=== PATIENT | male | born 1970 | race Caucasian/White ===

== ENCOUNTER 2018-07-05 15:40 | Outpatient (CLI) | payer OTHER, SELFPAY ==
--- NOTE | 2018-07-05 14:45 | DI.RAD_ITS ---
SYMPTOMS/DIAGNOSIS: LEFT HIP PAIN, H/O LUMBAR DISCECTOMY, Z98.890, ? FX OR OSTEOPHYTE LEFT HIP AND PELVIS: There is mild joint space narrowing of the left hip. Subchondral sclerosis and spurring is seen of the acetabulum. The bones are intact and normally mineralized. The sacroiliac joints are well maintained. The symphysis pubis is intact. The soft tissues are unremarkable. IMPRESSION: Mild degenerative changes of the left hip. LUMBAR SPINE: AP, lateral and bilateral oblique views of the lumbar spine. There are five lumbar-type vertebral bodies. No acute fractures or subluxations are seen. No spondylolysis or spondylolisthesis is present. There do appear to be mild degenerative changes of the facets at L3-4, L4-5 and L5-S1. Small endplate osteophytes are seen at the inferior endplate of L2. IMPRESSION: Mild degenerative changes in the lumbar spine.
== END 2018-07-05 16:00 ==
PROVIDERS: PCP Nurse Practitioner Family; Visit Provider Nurse Practitioner Family
DX: M25.552 Pain in left hip (principal); M16.12 Unilateral primary osteoarthritis, left hip; M47.817 Spondylosis without myelopathy or radiculopathy, lumbosacral region; M25.78 Osteophyte, vertebrae; Z98.890 Other specified postprocedural states
CPT/HCPCS: 72110; 73502

== ENCOUNTER 2018-07-14 00:16 | Outpatient (CLI) | payer SELFPAY ==
[2018-07-14 10:03] LABS: Abs Immature Grans 0.02 k/cumm (0.0-0.09); Absolute Basophil Count 0.03 k/cumm (0.0-0.2); Absolute Eosinophil Count 0.17 k/cumm (0.0-0.7); Absolute Lymphocyte Count 2.36 k/cumm (1.2-3.4); Absolute Monocyte Count 0.79 k/cumm (0.11-0.7); Absolute Neutrophil Count 7.06 k/cumm (1.2-6.7); Basophils % 0.3; Eosinophils % 1.6; HCT 46.4 % (40.0-50.0); HGB 15.5 g/dL (13.5-17.5); Immature Grans % 0.2; Lymphocytes % 22.6; Mean Corp. HGB Concentration 33.4 g/dL (32.0-36.0); Mean Corpuscular Hemoglobin 31.6 pg (27.0-33.0); Mean Corpuscular Volume 94.5 fL (80-95); Monocytes % 7.6; Neutrophils % 67.7; Platelet Count 298 x1000/uL (130-400); RBC 4.91 m/cumm (4.50-6.00); RBC Distribution Width 13.3 % (11.8-14.1); White Blood Cell Count 10.43 k/cumm (4.4-10.8)
[2018-07-14 11:20] LABS: ALT 27 U/L (12-78); AST 12 U/L (15-37); Albumin 3.3 g/dL (3.4-5.0); Alkaline Phosphatase 78 U/L (46-116); Anion Gap 6.5 mmol/L (3-11); BUN 10 mg/dL (7-18); Bilirubin, Total 0.2 mg/dL (0.2-1.0); CO2 31.5 mmol/L (21.0-32.0); CREATININE 0.76 mg/dL (0.70-1.30); Calcium 8.8 mg/dL (8.5-10.1); Chloride 103 mmol/L (98-107); ESR 14 MM/HR (0-15); Glucose 101 mg/dL (70-100); Potassium 4.3 mmol/L (3.5-5.1); Sodium 141 mmol/L (136-145); Total Protein 6.8 g/dL (6.4-8.2); Uric Acid 4.4 mg/dL (3.5-7.2)
== END 2018-07-14 00:36 ==
PROVIDERS: PCP Nurse Practitioner Family; Visit Provider Internal Medicine
DX: M25.552 Pain in left hip (principal); R20.2 Paresthesia of skin; S79.912A Unspecified injury of left hip, initial encounter
CPT/HCPCS: 36415; 80053; 85652; 84550; 85025

== ENCOUNTER 2018-08-01 01:09 | Outpatient (CLI) | payer OTHER, SELFPAY ==
--- NOTE | 2018-08-01 14:35 | DI.MRI_ITS ---
SYMPTOMS/DIAGNOSIS: PARESTHESIAS, LEFT LEG, LOW BACK PAIN SINCE LIFTING/ PULLING INJURY 06/29/18, PAIN WORSE IN LEFT HIP WITH PAIN RADIATING DISTALLY BELOW LEFT KNEE LUMBAR AND LEFT LOWER JOINT MRI: LUMBAR SPINE: The study was carried out according to the usual protocol without and with contrast enhancement. Degenerative changes involving the lower thoracic and lower lumbar spine are demonstrated. The conus medullaris terminates at the level of L1. There is no abnormal enhancement. The soft tissues are unremarkable. At T11-T12, there is a mild posterior disc bulge. At L1-T12, a mild posterior disc bulge is also noted. At L1-L2, the disc is unremarkable. There are mild degenerative changes involving the facet joints. There is no evidence of nerve root impingement or spinal stenosis. At L2-L3, the disc is unremarkable. There are mild degenerative changes involving the facet joints and thickening of the ligamentum flavum. There is no evidence of spinal stenosis or nerve root impingement. At L3-L4, the disc is normal. Bilateral facet joint degenerative changes and prominence of the ligamentum flavum are also noted. At this level, there is mild spinal stenosis. At L4-5, there is a posterior broad-based protrusion of the disc with extrusion along with bilateral facet joint hypertrophy and ligamentum flavum thickening results in moderate spinal stenosis. The left L5 nerve root appears displaced medially by the facet joint hypertrophy and posteriorly by the disc protrusion. At L5-S1, there is a left-sided laminectomy defect. Mild posterior broad-based disc protrusion is identified. There is low signal tissue abutting the left S1 nerve root on the axial images 6 and 7. Differential diagnosis includes peridural fibrosis or recurrent disc protrusion. There is no evidence of stenosis. SUMMARY: Degenerative changes involving the lower thoracic and lumbar spine are identified. There are postoperative changes on the left side at L5-S1. A low signal tissue abutting the left S1 nerve root may be secondary to a peridural fibrosis or recurrent disc protrusion. LEFT LOWER JOINT FOCUSED ON THE HIP: There are mild degenerative arthritic changes within both hip joints, manifested by joint space narrowing, articular cartilage thinning and a small joint effusion. There is increased signal within the right and left acetabular marii, likely degenerative. Note is made of normal signal throughout both hips and visualized portions of the pelvis. No avascular necrosis or fractures identified. The pubic symphysis and visualized portions of the SI joints have a normal appearance. SUMMARY: Mild degenerative changes involving the right and left hip are identified as described above.
--- NOTE | 2018-08-01 16:56 | DI.VRAD_ITS ---
EXAM: MRI Left Lower Extremity Without Intravenous Contrast. Hip EXAM DATE/TIME: 08/01/2018 2:44 PM CLINICAL HISTORY: 48 years old, male; Pain; Hip; Left; Patient HX: Paresthesias, left leg TECHNIQUE: MR of the Left MR lower extremity without intravenous contrast. Exam focused on the hip. COMPARISON: CR XR hip LT complete AP pelvis 07/05/2018 2:24 PM FINDINGS: There are mild degenerative arthritic changes within both hip joints manifested by joint space narrowing, articular cartilage thinning and small joint effusions. There is increased signal within the right and left acetabular labrum, likely degenerative. Bone marrow signal throughout both hips and visualized portions of the pelvis is normal. No avascular necrosis or fracture is identified. The pubic symphysis and visualized portions of the sacroiliac joints have normal appearances. IMPRESSION: Mild degenerative arthrosis of the right and left hip joints. Dictated and Authenticated by: Donnie Macias MD. Ordering:HANSEL MCKNIGHT MD
--- NOTE | 2018-08-01 17:08 | DI.VRAD_ITS ---
EXAM: MR Lumbar Spine Without And With Intravenous Contrast CLINICAL HISTORY: 48 years old, male; Pain; Other: Paresthesias, left leg; Patient HX: Paresthesias left leg TECHNIQUE: Magnetic resonance images of the lumbar spine without and with intravenous contrast in multiple planes. COMPARISON: CR XR lumbar spine complete 07/05/2018 2:24 PM FINDINGS: Vertebrae: Degenerative spondylosis of the lower thoracic and lower lumbar spine. Spinal cord: The conus terminates at the level of the L1 vertebral body. No abnormal enhancement. Soft tissues: Unremarkable. DISCS/SPINAL CANAL/NEURAL FORAMINA: T11-T12: Mild posterior disc bulge. T12-L1: Mild posterior disc bulge. L1-L2: Unremarkable disc. Mild degenerative arthrosis of the facet joints. No nerve root impingement or spinal stenosis. L2-L3: Unremarkable disc. Degenerative facet arthrosis and ligamentum flavum thickening. No nerve root impingement or spinal stenosis. L3-L4: Normal disc. Bilateral facet hypertrophy and ligamentum flavum thickening. Minimal spinal stenosis. L4-L5: Posterior broad-based disc protrusion/extrusion which along with bilateral facet hypertrophy and ligamentum flavum thickening results in moderate spinal stenosis. The left L5 nerve root appears displaced medially by the facet joint hypertrophy and posteriorly by the disc extrusion. L5-S1: Left-sided laminectomy/laminotomy defect. Mild posterior broad-based disc protrusion. Low signal tissue abuts the left S1 nerve root on axial images 6 and 7. Differential diagnosis includes perideural fibrosis and recurrent disc protrusion. No stenosis. IMPRESSION: 1. Degenerative spondylosis of the lower thoracic and lower lumbar spine. 2. Postoperative changes on the left at L5-S1. Low signal tissue abutting the left S1 nerve root may be secondary to peridural fibrosis as well as recurrent disc protrusion. Dictated and Authenticated by: Donnie Macias MD. Ordering:HANSEL MCKNIGHT MD
== END 2018-08-01 01:29 ==
PROVIDERS: PCP Nurse Practitioner Family; Visit Provider Nurse Practitioner Family
DX: R20.2 Paresthesia of skin (principal); M54.5 Low back pain; M25.552 Pain in left hip; M16.0 Bilateral primary osteoarthritis of hip; M51.24 Other intervertebral disc displacement, thoracic region; M47.26 Other spondylosis with radiculopathy, lumbar region; M51.26 Other intervertebral disc displacement, lumbar region; Z98.890 Other specified postprocedural states
CPT/HCPCS: 73721; 72148

== ENCOUNTER 2020-02-12 11:58 | Outpatient (CLI) | payer OTHER, SELFPAY ==
--- NOTE | 2020-02-12 11:30 | DI.RAD_ITS ---
EXAM: XR SHOULDER RT COMPLETE 2+V CLINICAL HISTORY: pain TECHNIQUE: COMPARISON: CR ACROMIO CLAVICULAR JOINTS from 12/27/2010 FINDINGS: Two views were obtained. The cartilaginous joint space of the glenohumeral joint may be minimally na rrowed as seen on the axillary view. Mild marginal osteophyte formation of the glenoid noted. No ot her significant bony or soft tissue abnormalities. IMPRESSION:
== END 2020-02-12 12:18 ==
PROVIDERS: PCP Nurse Practitioner Family; Visit Provider Orthopaedic Surgery
DX: M25.511 Pain in right shoulder (principal); M25.711 Osteophyte, right shoulder
CPT/HCPCS: 73030

== ENCOUNTER 2020-03-13 03:43 | Outpatient (CLI) | payer OTHER, SELFPAY ==
--- NOTE | 2020-03-13 08:30 | DI.MRI_ITS ---
EXAM: MR UPPER JOINT RT WO CLINICAL HISTORY: PAIN R SHOULDER,RT ROTATOR CUFF TENDINITIS,M75.81. TECHNIQUE: Multiplanar multisequence MRI was performed. CONTRAST MATERIAL: Noncontrast. COMPARISON: Plain films dated 12 Feb 2020 FINDINGS: Bones: There is no fracture or contusion pattern. The acromioclavicular joint is normal. There is fluid in the subacromial subdeltoid bursa and a small amount of fluid within the glenohumeral joint. There is a moderate amount of fluid in the sub coracoid bursa. Rotator Cuff: The air is a full-thickness tear of the anterior half of the supraspinatus tendon. There is no muscl e atrophy. The infraspinatus tendon is intact. The subscapularis and teres minor are normal. Labrum and biceps anchor: The biceps tendon is located. The anchor is well maintained. The labrum is within normal limits. IMPRESSION: Full-thickness tear of the anterior half of the supraspinatus tendon.. DATA REPOSITORY:
== END 2020-03-13 04:03 ==
PROVIDERS: PCP Nurse Practitioner Family; Visit Provider Orthopaedic Surgery
DX: M25.511 Pain in right shoulder (principal); M75.81 Other shoulder lesions, right shoulder; M75.101 Unspecified rotator cuff tear or rupture of right shoulder, not specified as traumatic
CPT/HCPCS: 73221

== ENCOUNTER 2020-04-10 08:16 | Outpatient (CLI) | payer OTHER, SELFPAY ==
[2020-04-10 19:40] LABS: COVID-19 RT-PCR UVMMC Result Negative (Negative)
== END 2020-04-10 08:36 ==
PROVIDERS: PCP Nurse Practitioner Family; Visit Provider Orthopaedic Surgery
DX: Z01.818 Encounter for other preprocedural examination (principal); Z11.59 Encounter for screening for other viral diseases
CPT/HCPCS: U0003

== ENCOUNTER 2020-04-13 10:03 | Day surgery (SDC) | payer OTHER, SELFPAY ==
[2020-04-13 10:23] VITALS: BP 117/78; PULSE 72; RESP 16; TEMP 36.9; O2SAT 96
[2020-04-13] MEDS: Lactated Ringers 1,000 ML 80 ML IV ×2 (10:50→12:57)
[2020-04-13] MEDS: ceFAZolin 2 GM/50 ML BAG IVPB (13:00)
--- NOTE | 2020-04-13 14:17 | W.PM.DSUDISC ---
Discharge Plan Disposition Patient Disposition: HOME Condition: Good Discharge Details Reason For Visit: R ROTATOR CUFF REPAIR Attending Provider: Rufino Siddiqi Primary Care Provider: Hafsa Lo Home Meds and New Rx's Prescriptions: New hydrocodone-acetaminophen 5-325 mg tablet 1 tab PO Q4H PRN (Reason: pain) Qty: 20 RF: 0 Continued acetaminophen 500 mg capsule 1,000 mg PO TID PRN (Reason: pain) Qty: 240 RF: 1 ibuprofen 800 mg tablet 800 mg PO TID PRN (Reason: pain) Qty: 240 RF: 1 Discharge Instructions Additional Instructions: Sling for comfort. May keep arm out or sling as much as your discomfort allows. Keep cryocuff on R shoulder continuously overnite tonite. Tomorrow, start to use 4 times/day for 1 hour each time. Keep dressings dry and in place for 72 hours. After 72 hours, may remove dressings, shower, and get incision wet. When out of sling, don't reach away from your body with your R arm. After you remove the dressings in 72 hours, you can leave the incision uncovered if it is dry and sealed. Follow up with in 2 weeks. Take ibuprofen 3 times/day until return in 2 weeks. Take hydrocodone for breakthru pain, if needed. Referrals: Rufino Siddiqi MD [ [facility]YS[facility]IAN] - (f/u in 2 weeks) Equipment/Supplies: Sling Activity:: Activity as Tolerated Remove Dressings/Wound Care:: 72 hours Shower/Bathe:: 72 hours Diet:: As Tolerated Discharge Orders Discharge Orders: Discharge Order (Routine); Ordered 04/13/20 Ordered By: Rufino Siddiqi DS: Diagnosis Discharge Diagnosis (1) Torn rotator cuff: Status: Acute
[2020-04-13 14:37] VITALS: BP 125/86; PULSE 67; RESP 23; TEMP 36.4; O2SAT 95
[2020-04-13 14:42] VITALS: BP 109/67; PULSE 68; RESP 14; TEMP 36.4; O2SAT 97
[2020-04-13 14:47] VITALS: BP 111/83; PULSE 68; RESP 17; TEMP 36.4; O2SAT 95
[2020-04-13 15:01] VITALS: BP 116/81; PULSE 65; RESP 17; TEMP 36.8; O2SAT 96
[2020-04-13 15:43] VITALS: BP 116/81; PULSE 63; RESP 18; TEMP 36.3; O2SAT 96
[2020-04-13] MEDS: oxyCODONE-CR 10 MG TABCR PO (15:43)
--- NOTE | 2020-04-14 14:58 | ROE_ITS ---
Date of service: 04/13/20 Time of Service: 13:00 Operative Note Operative Note DATE OF PROCEDURE: 04/13/20 PRE-OP DIAGNOSIS: Torn rotator cuff right POST-OP DIAGNOSIS: same PROCEDURE: Repair torn rotator cuff on the right [employer] ENGINEER: Rina Esquivel ANESTHESIA: TOMMIE PATHOLOGY: none sent COMPLICATIONS: None Patient was transported to: PACU Patient's condition: stable Indications: Is a 49-year old white male with a greater than 5-month history of persistent right shoulder pain and dysfunction. This was not associated with any known trauma. Patient was initially treated conservatively with a diagnosis of rotator cuff tendinitis, mainly involving the supraspinatus tendon. His pain did not respond to anti-inflammatory medications, structured physical therapy, and subacromial space and steroid injection. Because of the failure of conservative treatment and MRI scan was obtained. The MRI scan showed a full- thickness tear of the anterior 1/3-1/2 of the supraspinatus tendon. There was a mild amount of retraction on MRI scan. There was no muscular atrophy noted. Because of the failure to improve with conservative treatment surgical repair of the rotator cuff was recommended to alleviate his pain. The risk complications of procedure explained patient detail preop. Procedure Description: Patient was taken the operating room on 04/13/2020 where is placed supine operative table. General anesthetic was administered. He was then placed in the pedersen chair position. His right shoulder was then prepped and draped free in usual sterile fashion. Incision was made in the superior aspect of the shoulder beginning at the AC joint and then extending distally about 4 cm distal to the anterolateral corner of the acromion. Incision was ca rried down to the fascia. Simultaneous bleeders were cauterized. The anterior raphae of the deltoid was then incised and then the deltoid muscle was sharply dissected from the anterior acromion perhaps half the distance to the AC joint. Anterior acromioplasty was then performed with oscillating saw a rongeur and then a file. Disease and hypertrophic subacromial bursa was excised. The tear of the supraspinatus tendon was then encountered. On inspection the tear was exactly as had been determined from the MRI scan. The tear began at the bicipital groove extended posteriorly about 2 to 3 cm. It was retracted medially only about a centimeter to a centimeter and a half. It involves just the about the anterior 1/2-1/3 of the supraspinatus. I debrided the retracted end of the tendon down to healthy tendon using a rongeur. I then prepared the footprint on the greater tuberosity with rongeur and a rasp. This provided a bleeding bed of bone for reattachment of the supraspinatus tendon. The biceps tendon was not examined and was found to be undamaged and well located in the bicipital groove. A single 5.0 anchor was then placed in the prepared bed on the greater tuberosity and countersunk. The 2 sutures of #2 FiberWire that were preloaded on the anchor were then passed through the full-thickness of the supraspinatus tendon tear in a horizontal mattress fashion. The 2 sutures were tied returning the torn tendon to its anatomical position. These 2 sutures were then supplemented by interrupted [id number] sutures of #1 Vicryl suture material. The wound was irrigated with saline solution. The wound margins were infiltrated 0.5% Marcaine with epinephrine solution. 2 drill holes were placed to the anterior acromion and then the anterior deltoid was reattached to the acromion with interrupted [id number] sutures of #2 FiberWire through the drill holes in the acromion into full-thickness of deltoid muscle. The lateral deltoid muscle split was approximated with a running interlocked #1 Vicryl suture. Subcu was approximated with a running subcuticular suture of #3 Monocryl supplemented by tissue glue and Steri-Strips. Mepilex dressing was applied. This was then covered with an ABD pad and paper tape. Right arm was placed in a sling. Patient received a scalene block to the right upper extremity preop. His general anesthesia was reversed without complications. Estimated blood loss was less than 10 cc. Patient was discharged to the recovery room in good condition. Patient was later discharged home from day surgery unit when fully recovered. It was felt that he could be sent home as an outpatient due to the limited dissection and fairly small rotator cuff tear. Patient was instructed to wear the sling for comfort. He may leave his right arm out of the sling as often and is much as discomfort allows. He is instructed not to reach away from his body with his right hand at any time. He may shower and get incision wet in 72 hours. He should let the Mepilex dressing come off by itself or wait until he follows up to have it removed. He should follow-up with Dr. Siddiqi in 2 weeks. He is instructed to continue taking ibuprofen 800 mg p.o. 3 times daily until follow-up. He is given prescription for breakthrough pain of hydrocodone with acetaminophen 02/01/2025 1 tablet every 4 hours as needed for breakthrough pain. He is to apply the Cryo/Cuff to his right shoulder continuously overnight tonight. Tomorrow he will start use a Cryo/Cuff 4 times a day for an hour each time.
== END 2020-04-13 16:31 | disposition home or self-care (01) ==
PROVIDERS: PCP Nurse Practitioner Family; Visit Provider Orthopaedic Surgery
PROC: (CPT 23412; principal; 2020-04-13 13:30)
DX: M75.121 Complete rotator cuff tear or rupture of right shoulder, not specified as traumatic (principal); G89.18 Other acute postprocedural pain; F17.210 Nicotine dependence, cigarettes, uncomplicated
CPT/HCPCS: 23412; 76942; C1713; J0690; J1100; J1885; J2001; J2405; L3650

== ENCOUNTER 2020-05-27 10:58 | Outpatient (CLI) | payer OTHER, SELFPAY ==
--- NOTE | 2020-05-27 10:30 | DI.RAD_ITS ---
EXAM: XR SHOULDER RT 1V CLINICAL HISTORY: s/p RTC repair TECHNIQUE: COMPARISON: CR XR SHOULDER RT COMPLETE 2+V from 02/12/2020 FINDINGS: Single AP view was obtained. There is a suture anchor in the greater tuberosity of the humerus. Mod erate degenerative changes of glenohumeral and acromioclavicular joints noted. IMPRESSION: RADIATION DOSE DELIVERED: Total DLP
== END 2020-05-27 11:18 ==
PROVIDERS: PCP Nurse Practitioner Family; Referring Provider Nurse Practitioner Family; Visit Provider Physician Assistant Surgical
DX: M19.011 Primary osteoarthritis, right shoulder (principal); M75.101 Unspecified rotator cuff tear or rupture of right shoulder, not specified as traumatic
CPT/HCPCS: 73020

== ENCOUNTER 2021-04-26 13:09 | Inpatient (IN) | payer BC, SELFPAY ==
--- NOTE | 2021-04-26 | DI.CT_ITS ---
Exam(s) CT FACIAL W EXAM: CT FACIAL W CLINICAL HISTORY: facial and auricular cellulitis with odynophagia. TECHNIQUE: Imaging Protocol: Axial computed tomography images with coronal and sagittal reformatted images were created and reviewed CONTRAST MATERIAL: Intravenous: Omnipaque 350 Contrast volume:100 mL Oral: No COMPARISON: No exams were available for comparison FINDINGS: Facial Bones: No definite fracture is noted in facial bones. Sinuses and Mastoids: Unremarkable. No air-fluid levels. Globes, extraocular muscles, optic nerves and retrobulbar fat: Normal. Upper aerodigestive tract: Normal. Mandible and bilateral temporomandibular joints: Normal. Soft tissues: There is skin thickening and inflammatory stranding in the soft tissues overlying the r ight temporal bone. No focal fluid collection is seen to suggest an abscess. IMPRESSION: Cellulitis involving the soft tissues overlying the right temporal bone. No focal fluid collection t o suggest an abscess. No mastoid effusion. RADIATION DOSE DELIVERED: Total DLP DATA REPOSITORY: All CT scans at this facility are submitted to the National Radiology Data Registry (NRDR) Dose Index Registry (DIR) with the [employer] ([employer]). RADIATION OPTIMIZATION: All CT scans at this facility use at least one of these dose optimization te chniques: automated exposure control; mA and/or kV adjustment per patient size (includes targeted exa ms where dose is matched to clinical indication); or iterative reconstruction.
--- NOTE | 2021-04-26 | DI.RAD_ITS ---
Exam(s) XR CHEST 2V PA LATERAL EXAM: XR CHEST 2V PA LATERAL CLINICAL HISTORY: cough TECHNIQUE: 2D digital imaging was performed. COMPARISON: CR CHEST 2 VIEWS PA,LAT from 06/04/2014 FINDINGS: MEDIASTINUM: Normal. HEART: Normal. PULMONARY VASCULATURE: Normal. LUNGS: Clear. PLEURAL SPACE: No pleural effusion or pneumothorax. BONE:Within normal limits for the patient's age. OTHER FINDINGS:Normal. IMPRESSION: No acute pulmonary findings. DATA REPOSITORY: RADIATION DOSE DELIVERED:
[2021-04-26 13:14] VITALS: BP 130/77; PULSE 94; RESP 16; TEMP 37.4; O2SAT 96
--- NOTE | 2021-04-26 13:44 | W.ED.GENAD ---
Discharge Plan Disposition Condition: Improving Discharge Details Chief Complaint: Cellulitis Admit Date/Time: 04/26/21 16:48 Admit Provider: Rachael Beebe Attending Provider: Rachael Beebe Primary Care Provider: Hafsa Lo ED Provider: Kandace Granados Discharge Instructions Activity:: Activity as Tolerated Equipment/Supplies:: No Equipment Needed Diet:: As Tolerated Discharge Orders Discharge Orders: Discharge Order (Routine); Ordered 04/30/21 Ordered By: Rachael Beebe Discharge Data Discharge Date/Time-TO BE ENTERED AT DEPARTURE: 04/26/21 15:00 Medical Decision Making James Hudson is a 50-year-old man without reported history of major medical problems presenting to emergency department with 2 days of worsening redness and swelling of the right ear, evangelical area of the right face, and right lateral neck just inferior to the ear. On exam patient well nontoxic-appearing. There are no areas of fluctuance or significant edema other than to the auricle itself. Concern for auricle chondritis versus perichondritis. Exam/history is not consistent with deep space abscess, septal or preseptal cellulitis, meningitis, sepsis. Plan for screening labs, IV placement, ED consult. I discussed patient with Dr. Capps of ENT, who recommended IV Zosyn. Plan for admission. Clinical Impression: auricular chondritis Disposition: [facility] inpatient Medical Records Medical records reviewed: Yes I reviewed the patient's medical records. Lab Data Lab results reviewed: Yes I reviewed the patient's lab results. HPI General Mode of arrival: ambulatory. Date/Time Provider Initiated Documentation: 04/26/21 13:11. Limitations to Documentation: no limitations. Information obtained by: patient, RN notes reviewed and old records reviewed. HPI Narrative: James Hudson is a 50-year-old man without reported history of major medical problems presenting to emergency department with chief complaint external ear pain. Patient reports that 2 days ago he was outside when he noticed a sharp stinging sensation at the helical root of his right ear. Patient reports that since that time he has noticed spreading swelling and redness. He reports that swelling and redness now over his entire right ear, spreading into the temporal region of his right face, and also below his ear into his right lateral neck. Patient reports that he area of swelling and redness is very painful. He denies any inner ear pain or hearing changes, fever, cough, shortness of breath, any other pain, vomiting, diarrhea, numbness, weakness, pain with moving his eye, vision changes, difficulty swallowing. Patient reports he has continued to eat and drink as usual. He denies any history of similar symptoms in the past. Related Data Home Medications Medication Instructions Recorded Confirmed ibuprofen 600 mg PO TID #15 tab 04/30/21 05/06/21 nicotine [Nicotrol] 1 inh INHALATION Q2H PRN PRN #168 04/30/21 05/06/21 ea Previous Rx's Medication Instructions Recorded ibuprofen 600 mg PO TID #15 tab 04/30/21 nicotine [Nicotrol] 1 inh INHALATION Q2H PRN PRN #168 04/30/21 ea Allergies Allergy/AdvReac Type Severity Reaction Status Date / Time No Known Allergies Allergy Verified 05/06/21 08:54 General Stated Complaint: Cellulitis GILBERTO: 4 Review of Systems Narrative: Constitutional: denies fevers Eyes: denies eye pain, pain with moving his eye, vision changes ENT: denies inner ear pain, hearing changes, dental pain, sore throat, reports external ear pain, pain in his right evangelical area and right lateral neck and area of rash Cardiovascular: denies chest pain, edema Respiratory: denies SOB, cough GI: denies abdominal pain, vomiting, diarrhea : denies flank pain MSK: denies back pain, neck pain, arthralgias, myalgias Skin: Reports rash as per HPI, denies any other skin changes Neuro: denies headaches, numbness, weakness PFSH Medical History ADD (attention deficit disorder) Asthma Sciatica of left side Smoker Surgical History H/O cervical discectomy H/O right inguinal hernia repair S/P lumbar discectomy Family History Mother Diabetes Hypertension Father Hypertension Heart disease Sister Hypertension Social History Smoking/Tobacco Use Status: Current every day Tobacco Type: cigarettes Smoking packs per day: 1.5 Smoking cigarettes per day: 30.0 Years smoked: 30 Smoking pack-years: 45.00 Smoking risk assessment performed?: Yes Alcohol Intake: current Alcohol Intake frequency: a few times a month Alcohol type: beer and other Details: 6 pack on weekends Drug use: Never Substance use type: does not use Details: alcohol: t-2. 2 beers Household members: none Number of Children: 2 current occupation: [employer], [place] [employer] x 2 1/2 years Current gender identity: male What type of physical activity do you participate in: other Details: with employment Do you feel safe at home: Yes Do you feel safe in your relationship?: Yes Exam Narrative Exam Narrative: Constitutional: well and [id number], pleasant, conversing normally HENT: head atraumatic/normocephalic, mucous membranes moist, no edema/lesion/erythema of the oropharynx, normal voice, no drooling or pooling of secretions, right auricle edematous and erythematous, erythema at the helical root and into the right lateral temporal area with minimal edema, no periorbital edema/erythema, erythema at the inferior aspect of the right ear into the superior aspect of the right lateral neck without edema/fluctuance. Right canal is normal without edema or discharge, right TM is normal. Eyes: conjunctiva normal, sclera normal, pupils 3mm b/l, ERRLA, extraocular movements intact and painless Neck: no stridor, full painless ROM, trachea midline Chest: normal inspection Resp: normal work of breathing, speaking in full sentences Cardio: normal rate, normal rhythm Skin: warm, dry, normal color, no rash Neuro: alert, not altered, grossly non-focal, normal tone Ext: Moving all extremities equally Psych: normal mood, normal affect, normal behavior Course Vital Signs Vital signs: Vital Signs Temperature 37.4 C 04/26/21 13:14 Pulse 94 H 04/26/21 13:14 Respiratory Rate 16 04/26/21 13:14 Blood Pressure 130/77 04/26/21 13:14 Pulse Oximetry 96 04/26/21 13:14 Temperature 37.4 C 04/26/21 13:14 Temperature Source Skin 04/26/21 13:14 Pulse 94 H 04/26/21 13:14 Respiratory Rate 16 04/26/21 13:14 Respiratory Effort 04/26/21 13:20 Blood Pressure 130/77 04/26/21 13:14 Pulse Oximetry 96 04/26/21 13:14 Oxygen Delivery Method Room Air 04/26/21 13:14 Oxygen Flow Rate 0 04/26/21 13:14 Pain Level 5 04/26/21 13:14
[2021-04-26 14:28] LABS: Abs Immature Grans 0.02 10^3/uL (0.0-0.06); Absolute Basophil Count 0.03 10^3/uL (0.0-0.2); Absolute Eosinophil Count 0.03 10^3/uL (0.0-0.7); Absolute Lymphocyte Count 1.35 10^3/uL (1.2-3.4); Absolute Monocyte Count 1.31 10^3/uL (0.1-0.8); Absolute Neutrophil Count 5.88 10^3/uL (1.2-6.7); Basophils % 0.3; Eosinophils % 0.3; HCT 48.5 % (40.0-50.0); HGB 16.4 g/dL (13.5-17.5); Immature Grans % 0.2; Lymphocytes % 15.7; MCH 31.1 pg (27.0-33.0); MCHC 33.8 % (32.0-36.0); MCV 91.9 fL (80-95); MPV 9.6 fL (8.0-11.0); Monocytes % 15.2; Neutrophils % 68.3; Nucleated RBC 0 %; Platelet Count 307 10^3/uL (130-400); RBC 5.28 10^6/uL (4.36-5.78); RDW 13.1 % (11.8-14.1); RDW-SD 44.6 fL; WBC 8.62 10^3/uL (4.4-10.8)
[2021-04-26 14:50] LABS: ALT 24 U/L (16-63); AST 12 U/L (15-37); Albumin 3.6 g/dL (3.4-5.0); Alkaline Phosphatase 75 U/L (46-116); Anion Gap 9.1 mmol/L (3-11); BUN 10 mg/dL (7-18); Bilirubin, Total 0.3 mg/dL (0.2-1.0); C-Reactive Protein 5.18 mg/dL (0.0-0.3); CO2 28.9 mmol/L (21.0-32.0); CREATININE 0.7 mg/dL (0.70-1.30); Calcium 9.2 mg/dL (8.5-10.1); Chloride 103 mmol/L (98-107); Glucose 107 mg/dL (74-106); Potassium 3.8 mmol/L (3.5-5.1); Sodium 141 mmol/L (136-145)
[2021-04-26] MEDS: PIPERACILLIN/TAZO 3.375 GM in Normal Saline 50 ML IVPB (14:58)
[2021-04-26] MEDS: Normal Saline Flush 10 ML SYR IVP (14:59)
--- NOTE | 2021-04-26 15:05 | NUR.NOTE ---
second set of blood cultures drawn from the left AC at 1445
[2021-04-26 15:10] VITALS: BP 125/80; PULSE 84; RESP 16; O2SAT 97
[2021-04-26 15:14] LABS: Procalcitonin < 0.1 ng/mL
[2021-04-26 15:15] LABS: Source Nasal/Nares
[2021-04-26 15:16] VITALS: BP 119/78; PULSE 87; RESP 14; TEMP 37.5; O2SAT 99
--- NOTE | 2021-04-26 15:24 | W.PM.HP.N ---
Date of service: 04/26/21 Time of Service: 15:45 Assessment and Plan Assessment and plan (1) Cellulitis of auricle of right ear: Status: Acute Assessment and plan: Admit for IV antibiotics. ENT recommended anti pseudomonal coverage in addition to skin floar, so zosyn was initiated in the ED and will be continued. Await results of CT face/soft tissues neck. (2) Odynophagia: Status: Acute Assessment and plan: Await above imaging. No difficulty with swallowing per patient. May have to downgrade diet. (3) Upper respiratory infection: Status: Acute Assessment and plan: PMHx does list asthma, though patient does not list this in his PMHx in his interview with me. He is not wheezing. Await CXR. Provide antitussives. I do not see a role for steroids right now. He is already on abx for above. (4) Tobacco abuse: Status: Acute Assessment and plan: Advised to quit. Provide nicotine replacement. (5) DVT prophylaxis: Status: Acute Assessment and plan: lovenox (6) Discharge planning issues: Status: Acute Assessment and plan: Full code History of Present Illness History of Present Illness Chief Complaint: R facial, ear, and neck swelling Narrative: Mr Swan is a 50 year old male who denies having any past medical history other than tobacco abuse who presented to [facility] ED today c/o progressively worsening right ear, facial and neck swelling, redness and pain since he was stung by an unknown insect on Monday. The incident happened while mowing on Monday, when the patient thought that either black or horse flies were swarming around him. He felt something sting him in his right ear. He does not have a history of allergic reactions to insect bites and he is really not sure what the insect was - he did not see it. While initially the right ear just felt sore, the following morning the right side of the face was also sore and he noticed that it was hurting to swallow on the right side, though it was not difficult to swallow. This morning, he found the symptoms to be even worse, including swelling of the superior aspect of anterior neck. It needs to be noted that the patient has a history of C-spine decompression/discectomy and has hardware in place. In the ED, he was afebrile and did not have leucocytosis. However, his presentation was impressive. ENT consult was sought over the phone, and recommendation was made to initiate the patient on zosyn. Hospitalist admission was requested. The patient is reporting 4-5 days of respiratory symptoms including sneezing and productive cough with ramsey sputum, but not fever. His roommate and a family member have the same symptoms. Both he and his roommate are fully vaccinated against covid-19. The patient states he got an mRNA vaccine, but does not remember which type. He has a card. He does smoke and was advised to quit. He was taking Tussin to help manage his symptoms. Review of Systems Narrative: Reports slight pressure behind right eye, but no pain on eye movement. All systems reviewed & are unremarkable except as noted in HPI and below PFSH Medical History ADD (attention deficit disorder) Asthma Sciatica of left side Smoker Surgical History H/O cervical discectomy H/O right inguinal hernia repair S/P lumbar discectomy Family History Mother Diabetes Hypertension Father Hypertension Heart disease Sister Hypertension Social History Smoking/Tobacco Use Status: Current every day Tobacco Type: cigarettes Smoking packs per day: 1.5 Smoking cigarettes per day: 30.0 Years smoked: 30 Smoking pack-years: 45.00 Smoking risk assessment performed?: Yes Alcohol Intake: current Alcohol Intake frequency: a few times a month Alcohol type: beer and other Details: 6 pack on weekends Drug use: Never Substance use type: does not use Details: alcohol: t-2. 2 beers Household members: none Number of Children: 2 current occupation: [employer], [place] [employer] x 2 1/2 years Current gender identity: male What type of physical activity do you participate in: other Details: with employment Do you feel safe at home: Yes Do you feel safe in your relationship?: Yes Meds Allergies and Home Medications Allergies Allergy/AdvReac Type Severity Reaction Status Date / Time No Known Allergies Allergy Verified 04/26/21 13:19 Home Medications Medication Instructions Recorded Confirmed Type Unknown [No Known Home Meds] 04/26/21 04/26/21 History Exam Narrative Exam Narrative: General: Pleasant middle-aged male, A&Ox3, sitting comfortably in a chair, visibly erythema/swelling R face, ear Neurological: A&Ox3, no focal deficits Psychiatric: Appropriate speech pattern/content Skin: R ear erythematous but ear canal does not appear involved. Facial erythema and swelling superior R side of the face sparing the eye HEENT: Atraumatic, normocephalic, EOMI, MMM, see skin exam above, clear oropharynx, + submandibular swelling on R though no obviously palpable abscess (?lymphadenopathy), no JVD Cardiovascular: RRR, no m/r/g Lungs: CTAB Gastrointestinal: soft, nontender, nondistended Genitourinary: deferred Extremities: no edema BLE's Results Imaging Additional studies: CT facial bones, soft tissues neck, and CXR are pending. Labs Result diagrams: 04/26/21 14:16 04/26/21 14:16 Labs: Laboratory Results - last 24 hr 04/26/21 04/26/21 04/26/21 14:16 14:16 14:16 WBC 8.62 RBC 5.28 Hgb 16.4 Hct 48.5 MCV 91.9 MCH 31.1 MCHC 33.8 RDW 13.1 Plt Count 307 MPV 9.6 Immature Gran % 0.2 Neutrophils % 68.3 Lymphocytes % 15.7 Monocytes % 15.2 Eosinophils % 0.3 Basophils % 0.3 Nucleated RBC % 0 Absolute Neutrophils 5.88 Absolute Lymphocytes 1.35 Absolute Monocytes 1.31 H Absolute Eosinophils 0.03 Absolute Basophils 0.03 Sodium 141 Potassium 3.8 Chloride 103 Carbon Dioxide 28.9 Anion Gap 9.1 BUN 10 Creatinine 0.7 Estimated GFR/1.73 m2 >= 60.00 Glucose 107 H Calcium 9.2 Total Bilirubin 0.3 AST 12 L ALT 24 Alkaline Phosphatase 75 C-Reactive Protein 5.18 H Total Protein 8.0 Albumin 3.6 Procalcitonin < 0.1 COVID-19 Source 04/26/21 15:00 WBC RBC Hgb Hct MCV MCH MCHC RDW Plt Count MPV Immature Gran % Neutrophils % Lymphocytes % Monocytes % Eosinophils % Basophils % Nucleated RBC % Absolute Neutrophils Absolute Lymphocytes Absolute Monocytes Absolute Eosinophils Absolute Basophils Sodium Potassium Chloride Carbon Dioxide Anion Gap BUN Creatinine Estimated GFR/1.73 m2 Glucose Calcium Total Bilirubin AST ALT Alkaline Phosphatase C-Reactive Protein Total Protein Albumin Procalcitonin COVID-19 Source Nasal/Nares Last Vital Signs Temp 37.5 C 04/26/21 15:16 Pulse 87 04/26/21 15:16 Resp 14 04/26/21 15:16 BP 119/78 04/26/21 15:16 Pulse Ox 99 04/26/21 15:16
[2021-04-26 15:25] VITALS: BP 119/78; PULSE 87; RESP 14; TEMP 37.5; O2SAT 99
[2021-04-26 16:08] LABS: COVID-19 PCR Negative (Negative)
[2021-04-26] MEDS: Normal Saline - Diluent 50 ML VIAL IV (16:39)
[2021-04-26] MEDS: Omnipaque 350 MG/ML 100 ML BTL IJ (16:40)
--- NOTE | 2021-04-26 16:45 | DI.CT_ITS ---
Exam(s) CT NECK W EXAM: CT NECK W CLINICAL HISTORY: facial/auricular cellulitis with odynophagia/swell. TECHNIQUE: Imaging Protocol: Axial computed tomography images with coronal and sagittal reformatted images were created and reviewed CONTRAST MATERIAL: Intravenous: Omnipaque 350 Contrast volume:100 mL Oral: No COMPARISON: No exams were available for comparison FINDINGS: Visualized paranasal sinuses: Within normal limits. Nasopharynx: Within normal limits. Oropharynx: Within normal limits. Hypopharynx: Within normal limits. Larynx: Within normal limits. Retropharyngeal space: Within normal limits. Parotids/submandibular: Mild asymmetric enhancement of the right parotid gland. The left parotid gl and and submandibular glands are unremarkable. No calcification is present. Thyroid gland: Within normal limits. Lymphadenopathy: Mildly enlarged lymph nodes are seen in the right neck. There is a 2.2 cm long rig ht upper cervical lymph node. These are likely reactive. Trachea: Within normal limits. Lung apices: Mild centrilobular emphysematous changes. Bones: Within normal limits. Anterior cervical disc fusion from C4 through C7. Carotids/Jugular: Within normal limits. Soft tissues: Skin thickening and inflammatory stranding in the right periauricular region and super ficial to the right temporal bone. No focal fluid collection is seen to suggest an abscess. IMPRESSION: Findings suggestive of acute sialadenitis of the right parotid gland. No stone is identified. Cellu litis in the soft tissues around the right ear and parotid gland. No focal fluid collection to sugge st an abscess. RADIATION DOSE DELIVERED: Total DLP DATA REPOSITORY: All CT scans at this facility are submitted to the National Radiology Data Registry (NRDR) Dose Index Registry (DIR) with the [employer] (ACR). RADIATION OPTIMIZATION: All CT scans at this facility use at least one of these dose optimization te chniques: automated exposure control; mA and/or kV adjustment per patient size (includes targeted exa ms where dose is matched to clinical indication); or iterative reconstruction.
--- NOTE | 2021-04-26 16:50 | DI.VRAD_ITS ---
PROCEDURE INFORMATION: Exam: XR Chest Exam date and time: 04/26/2021 3:59 PM Age: 50 years old Clinical indication: Cough TECHNIQUE: Imaging protocol: XR of the chest. Views: 2 views. Total images: 2 COMPARISON: CR CHEST 2 VIEWS PA,LAT 06/04/2014 9:33 PM FINDINGS: Lungs: Unremarkable. No consolidation. Pleural spaces: Unremarkable. No pleural effusion. No pneumothorax. Heart/Mediastinum: Unremarkable. No cardiomegaly. Bones/joints: Unremarkable. IMPRESSION: No acute findings. Dictated and Authenticated by: Phu Larios MD. Ordering:ABDOULAYE Cano MD
[2021-04-26] MEDS: Enoxaparin 40 MG/0.4 ML SYR SC (16:53)
--- NOTE | 2021-04-26 16:54 | DI.VRAD_ITS ---
PROCEDURE INFORMATION: Exam: CT Maxillofacial With Contrast Exam date and time: 04/26/2021 4:15 PM Age: 50 years old Clinical indication: Other: Facial and auricular cellulitis with odynophagia TECHNIQUE: Imaging protocol: Computed tomography images of the face with intravenous contrast. Total images: 666 Contrast material: OMNIPAQUE 350; Contrast volume: 99 ml; Contrast route: INTRAVENOUS (IV); COMPARISON: MR C-SPINE^ROUTINE 07/01/2014 12:51 PM FINDINGS: Orbital cavity: Orbits are normal. Globes are unremarkable. Bones/joints: No acute fracture. Paranasal sinuses: Normal. No air-fluid levels. Mastoid air cells: No mastoid effusion. Soft tissues: There is right temporal skin thickening/subcutaneous inflammatory fat stranding. No discrete fluid collection. IMPRESSION: Right temporal skin thickening and subcutaneous inflammatory fat stranding, likely cellulitis. No discrete fluid collection. No mastoid effusion. Dictated and Authenticated by: Phu Larios MD. Ordering:ABDOULAYE Cano MD
--- NOTE | 2021-04-26 17:05 | DI.VRAD_ITS ---
PROCEDURE INFORMATION: Exam: CT Neck With Contrast Exam date and time: 04/26/2021 3:59 PM Age: 50 years old Clinical indication: Other: Facial and auricular cellulitis with odynophagia/swelling; Prior surgery; Surgery date: 6+ months TECHNIQUE: Imaging protocol: Computed tomography images of the neck with contrast. Total images: 639 Contrast material: OMNIPAQUE 350; Contrast volume: 100 ml; Contrast route: INTRAVENOUS (IV); COMPARISON: MR C-SPINE^ROUTINE 07/01/2014 12:51 PM FINDINGS: Nasopharynx: Unremarkable. Oropharynx: Unremarkable. No significant tonsillar enlargement. Hypopharynx: Unremarkable. Larynx: Unremarkable. Normal epiglottis. Retropharyngeal space: Unremarkable. Submandibular/Parotid glands: There is slight asymmetric hyper enhancement of the right parotid gland. The submandibular glands are unremarkable. Thyroid: Normal. No enlarged or calcified nodules. Lymph nodes: There is a 2.2 cm long axis right upper cervical node (series 11, image 39). Trachea: Visualized trachea is unremarkable. Lungs: Unremarkable as visualized. Bones/joints: C4-C7 ACDF hardware noted. Soft tissues: There is skin thickening and subcutaneous inflammatory fat stranding in the right preauricular region. No discrete fluid collection. IMPRESSION: 1. Asymmetric hyperenhancement the right parotid gland suggestive of acute sialadenitis. No sialolith. 2. Right cervical adenopathy, likely reactive. Dictated and Authenticated by: Phu Larios MD. Ordering:ABDOULAYE Cano MD
[2021-04-26 17:45] LABS: *AMPHETAMINES SCREEN URINE Negative (Negative); *BARBITURATES SCREEN URINE Negative (Negative); *BENZODIAZEPINES SCREEN URINE Negative (Negative); Cannabinoids THC Positive (Negative); Cocaine Screen,Urine Negative (Negative); METHADONE URINE SCREEN Negative (Negative); OPIATES URINE SCREEN Negative (Negative)
[2021-04-26] MEDS: Normal Saline 1,000 ML 150 ML IV (17:45)
[2021-04-26 17:46] LABS: Tricyclic Antidepressants Negative (Negative)
[2021-04-26] MEDS: Acetaminophen 325 MG TAB 650 MG PO (19:52)
[2021-04-26] MEDS: guaiFENesin 600 MG TABCR PO (19:52)
[2021-04-26] MEDS: Benzonatate 100 MG CAP PO (19:52)
[2021-04-26 23:55] VITALS: BP 116/79; PULSE 78; RESP 16; TEMP 36.5; O2SAT 94
[2021-04-27] MEDS: Normal Saline 1,000 ML 150 ML IV ×2 (01:15→08:00)
[2021-04-27 06:40] LABS: Abs Immature Grans 0.01 10^3/uL (0.0-0.06); Absolute Basophil Count 0.03 10^3/uL (0.0-0.2); Absolute Eosinophil Count 0.04 10^3/uL (0.0-0.7); Absolute Lymphocyte Count 1.79 10^3/uL (1.2-3.4); Absolute Monocyte Count 1.19 10^3/uL (0.1-0.8); Absolute Neutrophil Count 3.69 10^3/uL (1.2-6.7); Basophils % 0.4; Eosinophils % 0.6; HCT 43.4 % (40.0-50.0); HGB 14.2 g/dL (13.5-17.5); Immature Grans % 0.1; Lymphocytes % 26.5; MCH 30.9 pg (27.0-33.0); MCHC 32.7 % (32.0-36.0); MCV 94.3 fL (80-95); MPV 9.5 fL (8.0-11.0); Monocytes % 17.6; Neutrophils % 54.8; Nucleated RBC 0 %; Platelet Count 261 10^3/uL (130-400); RDW 13.2 % (11.8-14.1); RDW-SD 45.7 fL; WBC 6.75 10^3/uL (4.4-10.8)
[2021-04-27 06:50] LABS: Anion Gap 8.3 mmol/L (3-11); BUN 8 mg/dL (7-18); C-Reactive Protein 4.63 mg/dL (0.0-0.3); CO2 27.7 mmol/L (21.0-32.0); CREATININE 0.8 mg/dL (0.70-1.30); Calcium 7.9 mg/dL (8.5-10.1); Chloride 106 mmol/L (98-107); Glucose 98 mg/dL (74-106); Potassium 3.7 mmol/L (3.5-5.1); Sodium 142 mmol/L (136-145)
[2021-04-27 06:54] LABS: Hemoglobin A1C 5.9 % (<5.7)
[2021-04-27 07:30] VITALS: BP 128/75; PULSE 76; RESP 16; TEMP 37; O2SAT 95
[2021-04-27] MEDS: guaiFENesin 600 MG TABCR PO ×2 (08:00→19:39)
[2021-04-27] MEDS: Benzonatate 100 MG CAP PO ×3 (08:00→19:39)
--- NOTE | 2021-04-27 09:50 | INITIAL_ITS ---
- If Service Date Differs Date of service: 04/27/21 Time of Service: 09:50 Care Management Initial Assess REASON FOR HOSPITALIZATION:: Acute Infectious auricular chondritis PAST MEDICAL HISTORY/PAST SURGICAL HISTORY:: Medical History. ADD (attention deficit disorder). Asthma. Sciatica of left side. Smoker. Surgical History. H/O cervical discectomy. H/O right inguinal hernia repair. S/P lumbar discectomy PREVIOUS FUNCTIONAL STATUS/SOCIAL/FAMILY SUPPORTS:: James lives in [place] with a roommate. He reports that this works well, as his roommate works the day shift, and he works the evening shift. His parents live near by, as well as his two children, who are 20 & 24. 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 He is independent at baseline. CURRENT FUNCTIONAL STATUS:: James was sitting in a chair holding an ice pack to his face/ear when CM met with him. He reported that he feels that the redness is getting worse, and not currently improving. Per report, he is on IV Zosyn, and will likely remain for a few days. CM will continue to follow. ADVANCE DIRECTIVES:: None on file, CM will offer forms. Has patient been provided with info about the portal/API?: Yes Did the patient sign up for the portal?: No CODE STATUS:: Full Code INSURANCE COVERAGE / FINANCIAL ISSUES:: [employer] CURRENT HOME/COMMUNITY SERVICES/EQUIPMENT:: No current services or equipment. PRIMARY CARE PHYSICIAN:: Hafsa Lo POTENTIAL DISCHARGE NEEDS:: Follow up appointments. PATIENT/FAMILY EDUCATION NEEDS:: Review discharge instructions regarding activity levels and medications, discussion of self care needs including ask me three. ANTICIPATED BARRIERS TO DISCHARGE:: None identified. TRANSPORTATION:: Via private vehicle by friend. PLAN:: James is currently being treated with IV antibiotics. He will return home once he is medically cleared. He will be driven home via pirvate vehicle by a friend. He will follow up with his PCP and discharge plan of care. CM will continue to follow.
--- NOTE | 2021-04-27 10:25 | PHA.REVIEW ---
Pharmacy Admission Review - Admission Clinical Review (Last Reviewed 04/26/21 @ 16:41 by Rachael Beebe MD) Discharge planning issues (Acute) DVT prophylaxis (Acute) Odynophagia (Acute) Upper respiratory infection (Acute) Tobacco abuse (Acute) Cellulitis of auricle of right ear (Acute) No Known Allergies Allergy (Verified 04/26/21 13:19) Resuscitation Status Full Code Height 6 ft Weight 90.718 kg - Renal Dosing Renal Dosing: BUN 8 mg/dL (7-18) 04/27/21 06:20 Creatinine 0.8 mg/dL (0.70-1.30) 04/27/21 06:20 Medications needing adjustments: Reviewed (Crcl ~122 mL/min current meds okay) - Anticoagulation Anticoagulation: Hgb 14.2 g/dL (13.5-17.5) D 04/27/21 06:20 Hct 43.4 % (40.0-50.0) 04/27/21 06:20 Plt Count 261 10^3/uL (130-400) 04/27/21 06:20 Creatinine 0.8 mg/dL (0.70-1.30) 04/27/21 06:20 DVT Prophylaxis: Reviewed Medications: Enoxaparin Therapeutic Anticoagulation: N/A - Opiate Usage Evaluate Pain Scale/Pains Meds: N/A - Relevant Labs Sodium 142 mmol/L (136-145) 04/27/21 06:20 Potassium 3.7 mmol/L (3.5-5.1) 04/27/21 06:20 Chloride 106 mmol/L (98-107) 04/27/21 06:20 Magnesium 2.0 mg/dL (1.8-2.4) 04/27/21 06:20 C-Reactive Protein 4.63 mg/dL (0.0-0.3) H 04/27/21 06:20 Electrolytes, C-Reactive P, ESR: Reviewed - DM Control DM Control: Glucose 98 mg/dL (74-106) 04/27/21 06:20 Hemoglobin A1c 5.9 % (<5.7) H 04/27/21 06:20 Insulin Dosing: N/A (A1c slightly elevated, BG this morning within normal limits) - Heart Failure/CA EF%, ODALIS's, B-Blockers, Diuretics: N/A - BP Control BP Control: Blood Pressure 128/75 Blood Pressure 116/79 If elevated: N/A - Qtc Review If Elevated: N/A - IV to PO Switch IV Medications: Reviewed - Home Meds Home Med List reviewed: Reviewed (no known home meds) - Current meds Current Medication Order Review: Intervened (discontinued duplicate meds orders and DI meds that had already been given) - Comments Comments/Follow Ups: Watch VS, labs, for culture results and for med changes. Antibiotic Activity - Pharmacy Antibiotic Review Pharmacy Antibiotic Activity: Reviewed, no change (Zosyn continues (day 2 starts this afternoon). Sputum culture growing normal selene, blood cultures pending.)
--- NOTE | 2021-04-27 10:44 | NUR.NOTE ---
this CONSULTING DATABASE ADMINISTRATOR went into pts room to offer him AM care along with oral care. The PT refused. I was informed that the PT moves around the room independently so I brought him the things to wash up when he is ready. I did put clean linens on bed and offered anything else he may need and has no requests at this time. Nursing Note:
[2021-04-27] MEDS: predniSONE 20 MG TAB 60 MG PO (12:26)
--- NOTE | 2021-04-27 13:38 | PGE_ITS ---
Date of Service Date of service: 04/27/21 Time of Service: 13:38 Assessment and Plan Assessment and plan (1) Infected insect bite of head and neck: Status: Acute Assessment and plan: [place] [facility] [place] Continue zosyn for now. Add steroids and NSAIDS. (2) Cellulitis of auricle of right ear: Status: Acute Assessment and plan: As above (3) Sialadenitis: Status: Acute Assessment and plan: [place] [facility] [place]: Add cyalogogues. Heat when the patient is more comfortable. Recommended aggressive hydration. Steroids. (4) Acute bronchitis: Status: Acute Assessment and plan: No evidence of pneumonia. Likely viral. Covid-19 ruled out. No need for bronchodilators. Continue antitussives. (5) Tobacco abuse: Status: Chronic Assessment and plan: Advised to quit. Provide nicotine replacement. (6) DVT prophylaxis: Status: Acute Assessment and plan: lovenox (7) Discharge planning issues: Status: Acute Assessment and plan: Full code Subjective Subjective Interval history since last seen: Mr Swan feels that his right face redness and swelling are more extensive today. It hurts more to swallow as well, but he has no problem actually swallowing. Heat has not helped. Denies dizziness, chest pain, shortness of breath, nausea. No fever overnight. Exam Narrative Exam Narrative: General: Pleasant middle-aged male, A&Ox3, more extensive right facial erythema today, appears more purple as well HEENT EOMI, MMM, + submandibular swelling on R, appears worse; right ear appears slightly less erythematous and swollen; I also see wrinkles. R anterior superior neck is about as erythematous as yesterday. Cardiovascular: RRR, no m/r/g Lungs: CTAB Gastrointestinal: soft, nontender, nondistended Extremities: no edema BLE's Objective Last Vital Signs Temp 37.0 C 04/27/21 07:30 Pulse 76 04/27/21 07:30 Resp 16 04/27/21 07:30 BP 128/75 04/27/21 07:30 Pulse Ox 95 04/27/21 07:30 Laboratory Results - last 24 hr 04/26/21 04/26/21 04/26/21 14:16 14:16 14:16 WBC 8.62 RBC 5.28 Hgb 16.4 Hct 48.5 MCV 91.9 MCH 31.1 MCHC 33.8 RDW 13.1 Plt Count 307 MPV 9.6 Immature Gran % 0.2 Neutrophils % 68.3 Lymphocytes % 15.7 Monocytes % 15.2 Eosinophils % 0.3 Basophils % 0.3 Nucleated RBC % 0 Absolute Neutrophils 5.88 Absolute Lymphocytes 1.35 Absolute Monocytes 1.31 H Absolute Eosinophils 0.03 Absolute Basophils 0.03 Sodium 141 Potassium 3.8 Chloride 103 Carbon Dioxide 28.9 Anion Gap 9.1 BUN 10 Creatinine 0.7 Estimated GFR/1.73 m2 >= 60.00 Glucose 107 H Hemoglobin A1c Calcium 9.2 Magnesium Total Bilirubin 0.3 AST 12 L ALT 24 Alkaline Phosphatase 75 C-Reactive Protein 5.18 H Total Protein 8.0 Albumin 3.6 Procalcitonin < 0.1 Urine Opiates Screen Urine Methadone Screen Ur Barbiturates Screen Ur Tricyclics Screen Ur Amphetamines Screen U Benzodiazepines Scrn Urine Cocaine Screen Ur THC Screen COVID-19 Source SARS-CoV-2 (PCR) 04/26/21 04/26/21 04/27/21 15:00 17:15 06:20 WBC RBC Hgb Hct MCV MCH MCHC RDW Plt Count MPV Immature Gran % Neutrophils % Lymphocytes % Monocytes % Eosinophils % Basophils % Nucleated RBC % Absolute Neutrophils Absolute Lymphocytes Absolute Monocytes Absolute Eosinophils Absolute Basophils Sodium 142 Potassium 3.7 Chloride 106 Carbon Dioxide 27.7 Anion Gap 8.3 BUN 8 Creatinine 0.8 Estimated GFR/1.73 m2 >= 60.00 Glucose 98 Hemoglobin A1c Calcium 7.9 L Magnesium 2.0 Total Bilirubin AST ALT Alkaline Phosphatase C-Reactive Protein 4.63 H Total Protein Albumin Procalcitonin Urine Opiates Screen Negative Urine Methadone Screen Negative Ur Barbiturates Screen Negative Ur Tricyclics Screen Negative Ur Amphetamines Screen Negative U Benzodiazepines Scrn Negative Urine Cocaine Screen Negative Ur THC Screen Positive A COVID-19 Source Nasal/Nares SARS-CoV-2 (PCR) Negative 04/27/21 04/27/21 06:20 06:20 WBC 6.75 RBC 4.60 Hgb 14.2 D Hct 43.4 MCV 94.3 MCH 30.9 MCHC 32.7 RDW 13.2 Plt Count 261 MPV 9.5 Immature Gran % 0.1 Neutrophils % 54.8 Lymphocytes % 26.5 Monocytes % 17.6 Eosinophils % 0.6 Basophils % 0.4 Nucleated RBC % 0 Absolute Neutrophils 3.69 Absolute Lymphocytes 1.79 Absolute Monocytes 1.19 H Absolute Eosinophils 0.04 Absolute Basophils 0.03 Sodium Potassium Chloride Carbon Dioxide Anion Gap BUN Creatinine Estimated GFR/1.73 m2 Glucose Hemoglobin A1c 5.9 H Calcium Magnesium Total Bilirubin AST ALT Alkaline Phosphatase C-Reactive Protein Total Protein Albumin Procalcitonin Urine Opiates Screen Urine Methadone Screen Ur Barbiturates Screen Ur Tricyclics Screen Ur Amphetamines Screen U Benzodiazepines Scrn Urine Cocaine Screen Ur THC Screen COVID-19 Source SARS-CoV-2 (PCR) Objective Narrative Objective Narrative: CXR: No acute pulmonary findings. CT facial with contrast: Cellulitis involving the soft tissues overlying the right temporal bone. No focal fluid collection to suggest an abscess. No masto id effusion. CT soft tissues neck: Findings suggestive of acute sialadenitis of the right parotid gland. No stone is identified. Cellulitis in the soft tissues around the right ear and parotid gland. No focal fluid collection to suggest an abscess.
[2021-04-27] MEDS: Ketorolac 30 MG/ML VIAL IVP ×2 (15:21→19:40)
[2021-04-27] MEDS: Triamcinolone 0.1% CR 15 GM TUBE TP ×2 (15:21→19:41)
--- NOTE | 2021-04-27 15:41 | CHAPLAIN ---
James was sitting up in a chair when I met him this morning. He was waiting to speak with the hospitalist and worried that the redness from the bite was spreading. He said he's in touch with family by phone. I will continue to visit.
[2021-04-27 16:00] VITALS: BP 108/71; PULSE 65; RESP 18; TEMP 36.5; O2SAT 94
[2021-04-27] MEDS: Normal Saline Flush 10 ML SYR IVP (19:40)
[2021-04-28 00:12] VITALS: BP 118/70; PULSE 69; RESP 18; TEMP 36.7; O2SAT 94
[2021-04-28] MEDS: Ketorolac 30 MG/ML VIAL IVP ×4 (02:30→20:05)
[2021-04-28] MEDS: Normal Saline Flush 10 ML SYR IVP ×3 (02:31→14:36)
[2021-04-28 07:49] LABS: Anion Gap 8.8 mmol/L (3-11); BUN 13 mg/dL (7-18); C-Reactive Protein 3.38 mg/dL (0.0-0.3); CO2 26.2 mmol/L (21.0-32.0); CREATININE 0.8 mg/dL (0.70-1.30); Calcium 8.6 mg/dL (8.5-10.1); Chloride 106 mmol/L (98-107); Glucose 107 mg/dL (74-106); Magnesium 2.4 mg/dL (1.8-2.4); Potassium 4.3 mmol/L (3.5-5.1); Sodium 141 mmol/L (136-145)
[2021-04-28 08:28] VITALS: BP 120/73; PULSE 66; RESP 18; TEMP 37; O2SAT 97
[2021-04-28] MEDS: Triamcinolone 0.1% CR 15 GM TUBE TP ×3 (08:31→20:06)
[2021-04-28] MEDS: Benzonatate 100 MG CAP PO ×3 (08:32→20:05)
[2021-04-28] MEDS: Pantoprazole 40 MG TABCR PO (08:32)
[2021-04-28] MEDS: predniSONE 20 MG TAB 40 MG PO (08:32)
[2021-04-28] MEDS: guaiFENesin 600 MG TABCR PO ×2 (08:32→20:05)
--- NOTE | 2021-04-28 10:56 | PDOC.CMPRO ---
- If Service Date Differs Date of service: 04/28/21 Time of Service: 10:57 Care Management Progress Note S/O: Maynor was sitting up in his chair when CM met with him. He reported that he feels that he is improving, although there is still a lot of inflammation on his face. He stated that he thought he may have to get transferred yesterday, but per MD, [facility] was consulted and made recommendations, including adding steroids to his treatment. He stated that he is hoping to be discharged soon, as it is hard for him to sit in his room all day. He reported that he is a smoker, but did accept nicotine replacement during this admission. Per report, he will continue IV zosyn, steroids and NSAIDS, per ENT at [facility] [place], as he is improving with this treatment. CM will continue to follow. A: James is a 50 year old male admitted to [facility] on 04/26/21 with acute infectious auricular chondritis. P: Anticipate James will return home when medically cleared. He will follow up with his PCP and discharge plan of care. He will be driven home via private vehicle by family/friends. CM will continue to follow.
--- NOTE | 2021-04-28 12:43 | PGE_ITS ---
Date of Service Date of service: 04/28/21 Time of Service: 12:44 Assessment and Plan Assessment and plan (1) Infected insect bite of head and neck: Status: Acute Assessment and plan: Much better. Continue zosyn, steroids, NSAIDS per ENT at [facility] [place]. (2) Cellulitis of auricle of right ear: Status: Acute Assessment and plan: As above (3) Sialadenitis: Status: Acute Assessment and plan: Improved. I think this is likely due to contiguous spread of inflammation. Continue cyalogogues, reinforce Heat, IVF. Steroids. (4) Acute bronchitis: Status: Acute Assessment and plan: No evidence of pneumonia. Likely viral. Covid-19 ruled out. No need for bronchodilators. Continue antitussives. Improved (5) Tobacco abuse: Status: Chronic Assessment and plan: Advised to quit. Provide nicotine replacement. (6) DVT prophylaxis: Status: Acute Assessment and plan: lovenox (7) Discharge planning issues: Status: Acute Assessment and plan: Full code Subjective Subjective Interval history since last seen: Mr Hudson has noticed improvements in the swelling of the ear and the right lateral side of his face, but he is noticing more swelling under his right eye. Swallowing hurts less. Denies dizziness, chest pain, shortness of breath, nausea. Exam Narrative Exam Narrative: General: Pleasant middle-aged male, A&Ox3, signif icantly improved right facial erythema HEENT EOMI, MMM, + submandibular swelling on R, better; right ear significantly less erythematous and swollen. R anterior superior neck is less erythematous. Cardiovascular: RRR, no m/r/g Lungs: Coarse breath sounds at B bases. Gastrointestinal: soft, nontender, nondistended Extremities: no edema BLE's Objective Last Vital Signs Temp 37.0 C 04/28/21 08:28 Pulse 66 04/28/21 08:28 Resp 18 04/28/21 08:28 BP 120/73 04/28/21 08:28 Pulse Ox 97 04/28/21 08:28 Laboratory Results - last 24 hr 04/28/21 07:02 Sodium 141 Potassium 4.3 Chloride 106 Carbon Dioxide 26.2 Anion Gap 8.8 BUN 13 Creatinine 0.8 Estimated GFR/1.73 m2 >= 60.00 Glucose 107 H Calcium 8.6 Magnesium 2.4 C-Reactive Protein 3.38 H
[2021-04-28] MEDS: Normal Saline 1,000 ML 75 ML IV (14:33)
[2021-04-28 16:28] VITALS: BP 110/66; PULSE 66; RESP 16; TEMP 36.4; O2SAT 94
[2021-04-28] MEDS: Enoxaparin 40 MG/0.4 ML SYR SC (16:29)
[2021-04-28 23:35] VITALS: BP 120/74; PULSE 60; RESP 17; TEMP 37; O2SAT 99
[2021-04-29] MEDS: Ketorolac 30 MG/ML VIAL IVP ×4 (02:12→19:55)
[2021-04-29] MEDS: Normal Saline 1,000 ML 75 ML IV (06:44)
[2021-04-29 07:43] VITALS: BP 131/81; PULSE 65; RESP 18; TEMP 36.5; O2SAT 96
[2021-04-29] MEDS: Pantoprazole 40 MG TABCR PO (08:02)
[2021-04-29] MEDS: Benzonatate 100 MG CAP PO ×3 (08:02→19:55)
[2021-04-29] MEDS: guaiFENesin 600 MG TABCR PO (08:02)
[2021-04-29] MEDS: predniSONE 20 MG TAB 40 MG PO (08:03)
[2021-04-29] MEDS: Normal Saline Flush 10 ML SYR IVP ×3 (08:03→19:56)
[2021-04-29] MEDS: Triamcinolone 0.1% CR 15 GM TUBE TP ×3 (08:34→20:10)
--- NOTE | 2021-04-29 15:57 | W.PM.PROGNOT ---
Date of Service Date of service: 04/29/21 Time of Service: 15:58 Assessment and Plan Assessment and plan (1) Infected insect bite of head and neck: Status: Acute Assessment and plan: Significantly improved. Switch to zosyn, taper steroids, d/c IVF. (2) Cellulitis of auricle of right ear: Status: Acute Assessment and plan: As above (3) Sialadenitis: Status: Resolved Assessment and plan: I think this is likely due to contiguous spread of inflammation. As above (4) Acute bronchitis: Status: Resolved Assessment and plan: No evidence of pneumonia. Likely viral. Covid-19 ruled out. No need for bronchodilators. (5) Tobacco abuse: Status: Chronic Assessment and plan: Advised to quit. Provide nicotine replacement. (6) DVT prophylaxis: Status: Acute Assessment and plan: lovenox (7) Discharge planning issues: Status: Acute Assessment and plan: Full code Anticipate discharge home tomorrow on PO abx Subjective Subjective Interval history since last seen: Mr Hudson is feeling much better. He noticed significant improvement in his R ear and facial redness and swelling. His R neck is not longer red or swollen, and he states that it no longer hurts to swallow. Denies dizziness, chest pain, shortness of breath, nausea. Exam Narrative Exam Narrative: General: Pleasant middle-aged male, A&Ox3, even more improvement in right facial erythema HEENT EOMI, MMM, minimal sumbmandibular swelling on R; right ear faintly erythematous. Cardiovascular: RRR, no m/r/g Lungs: CTAB Gastrointestinal: soft, nontender, nondistended Extremities: no edema BLE's Objective Last Vital Signs Temp 36.5 C 04/29/21 07:43 Pulse 65 04/29/21 07:43 Resp 18 04/29/21 07:43 BP 131/81 04/29/21 07:43 Pulse Ox 96 04/29/21 07:43
[2021-04-29] MEDS: Enoxaparin 40 MG/0.4 ML SYR SC (16:07)
[2021-04-29 16:10] VITALS: BP 129/76; PULSE 52; RESP 16; TEMP 37; O2SAT 98
--- NOTE | 2021-04-29 16:10 | CHAPLAIN ---
I checked in with James today. The swelling and redness around his right ear and eye have lessened and he said he feels better. He's anxious about missing work, and has a hard time sitting still all day, so is hoping to be discharged soon.
--- NOTE | 2021-04-29 17:57 | CMPROGNOTE_ITS ---
- If Service Date Differs Date of service: 04/29/21 Time of Service: 17:57 Care Management Progress Note S/O: Maynor was sitting up in his chair today when CM met with him. He reported that he feels that he is improving. Per report, he has significantly improved. He will likely be changed to an oral antibiotic tomorrow if he continues to improve. He reported wanting to return home as soon as he can. He asked about a form that his work had requested, and CM confirmed that it had been filled out and sent to his employer. CM will continue to follow. A: James is a 50 year old male admitted to [facility] on 04/26/21 with acute infectious auricular chondritis. P: Anticipate James will return home when medically cleared. He will follow up with his PCP and discharge plan of care. He will be driven home via private vehicle by family/friends. CM will continue to follow.
[2021-04-29] MEDS: Amoxicillin 875/Clav. 125 TAB PO (19:55)
[2021-04-29 23:59] VITALS: BP 120/72; PULSE 52; RESP 18; TEMP 36.7; O2SAT 98
[2021-04-30] MEDS: Ketorolac 30 MG/ML VIAL IVP ×2 (01:24→08:35)
[2021-04-30 07:31] LABS: Platelet Count 313 10^3/uL (130-400)
[2021-04-30 08:30] VITALS: BP 143/87; PULSE 57; RESP 14; TEMP 36.7; O2SAT 98
[2021-04-30] MEDS: predniSONE 20 MG TAB 40 MG PO (08:34)
[2021-04-30] MEDS: Pantoprazole 40 MG TABCR PO (08:34)
[2021-04-30] MEDS: Benzonatate 100 MG CAP PO (08:35)
[2021-04-30] MEDS: Normal Saline Flush 10 ML SYR IVP (08:35)
[2021-04-30] MEDS: Amoxicillin 875/Clav. 125 TAB PO (08:35)
[2021-04-30] MEDS: Triamcinolone 0.1% CR 15 GM TUBE TP (08:36)
--- NOTE | 2021-04-30 12:08 | DSE_ITS ---
Date of service: 04/30/21 Time of Service: 12:08 DS: Diagnosis Discharge Diagnosis (1) Infected insect bite of head and neck: Status: Acute (2) Cellulitis of auricle of right ear: Status: Acute (3) Sialadenitis: Status: Resolved (4) Acute bronchitis: Status: Resolved (5) Tobacco abuse: Status: Chronic (6) COVID-19 ruled out by laboratory testing: Status: Ruled-out Discharge Plan Disposition Patient Disposition: HOME Condition: Improving Discharge Details Reason For Visit: Acute facial and auricular cellulitis, sialadeniti Admit Date/Time: 04/26/21 16:48 Admit Provider: Rachael Beebe Attending Provider: Rachael Beebe Primary Care Provider: Hafsa Lo Hospital Course Hospital Course: Mr Hudson is a 50 year old male with PMHx of tobacco abuse and asthma, which has been quiescent, who was admitted to [facility] hospitalist service on 04/26/21 with acute infected insect bite/sting resulting in R facial and auricular cellulitis and sialadenitis. The patient was treated with empiric zosyn, IVF, and when the findings were not improving with these interventions, [place] via [place] [facility] [place] At that time, continuation of same abx but addition of steroids and NSAIDs were recommended. Additionally, sour candy (cyalogogue) and heat were recommended for the R sialadenitis. The patient improved markedly with these interventions. Prior to discharge, he was switched to augmentin which did not result in worsening of his cellulitis. He is felt safe for discharge home today to complete a 10 day course of augmentin. He is recommended to continue NSAIDS (ibuprofen), but he will not be receiving steroids on discharge. He is recommended to apply ice to the are of facial and ear swelling/erythema. Additionally, the patient had evidence of a mild bronchitis. He ruled out for COVID-19 and is fully vaccinated. Clinically, bronchitis has resolved by the time of discharge. He is advised to quit smoking. Care for patient as well as completion of his discharge summary on day of discharge took 40 minutes. Home Meds and New Rx's Prescriptions: New Nicotrol 10 mg Cartridge 1 inh inhalation Q2H PRN PRNQty: 168 RF: 0 amoxicillin-pot clavulanate 875-125 mg Tablet 1 tab PO BID Qty: 10 RF: 0 ibuprofen 600 mg tablet 600 mg PO TID Qty: 15 RF: 0 Discharge Instructions Instructions: Ibuprofen (By mouth), Amoxicillin/Clavulanate Potassium (By mouth), How to Stop Smoking (DC), Cellulitis (DC), Insect Bite or Sting (DC), Sialoadenitis (GEN) Additional Instructions: Finish your antibiotics as prescribed and continue to apply ice to your face and ear to help decrease inflammation. You may return to work on 05/03/21. Return to the hospital with any fever, bleeding, chest pain, shortness of breath, or worsening of your symptoms. Follow up with your PCP in 1-2 weeks. Stand Alone Forms: Nursing Discharge Form Referrals: Hafsa Lo NP [Primary Care Provider] - 05/17/21 8:40 am Activity:: Activity as Tolerated Equipment/Supplies:: No Equipment Needed Diet:: As Tolerated Discharge Orders Discharge Orders: Discharge Order (Routine); Ordered 04/30/21 Ordered By: Rachael Beebe DS: Summary Time Spent with Patient providing and/or coordinating discharge services: Greater than 30 minutes Status at Discharge Functional status at discharge: independent ambulation Overall status at discharge: patient is progressing back to baseline Mental Status: mental status grossly normal Speech and Movement: speech and movement normal Mood: congruent mood Affect: normal affect Exam Narrative Exam Narrative: General: Pleasant middle-aged male, A&Ox3, continued improvement in right facial erythema HEENT EOMI, MMM, no sumbmandibular swelling on R; right ear faintly erythematous, improved from yesterday Cardiovascular: RRR, no m/r/g Lungs: CTAB Gastrointestinal: soft, nontender, nondistended Extremities: no edema BLE's Psych Mental Status: mental status grossly normal Speech and Movement: speech and movement normal Mood: congruent mood Affect: normal affect DS: Data Vitals/I&O Vitals and I&O: Vital Signs Temperature 36.7 C 04/30/21 08:30 Temperature Source Tympanic 04/30/21 08:30 Pulse 57 L 04/30/21 08:30 Pulse Rhythm Regular 04/30/21 08:30 Respiratory Rate 14 04/30/21 08:30 Respiratory Effort 04/30/21 08:30 Respiratory Depth Normal 04/30/21 08:30 Respiratory Pattern Normal 04/30/21 08:30 Blood Pressure 143/87 H 04/30/21 08:30 Pulse Oximetry 98 04/30/21 08:30 Oxygen Delivery Method Room Air 04/30/21 08:30 Oxygen Flow Rate 0 04/30/21 08:30 Pain Level 0 04/30/21 08:30 Comment 04/29/21 16:10 Intake & Output 04/29/21 04/30/21 04/30/21 23:59 11:59 23:59 Intake Total 1155 / 3425 1145 / 1145 Balance 1155 / 3425 1145 / 1145 Weight 89.2 kg Intake: IV 775 / 1895 705 / 705 Oral 380 / 1530 440 / 440 Other: Urine Color Yellow Urine Appearance Clear Comment Per pt. report, void x1 in the toilet. Voiding Methods Toilet Toilet Data Completed and Pending Completed studies during hospitalization [Text1]: CXR 04/26/21: No acute pulmonary findings. CT facial bones 04/26/21: Cellulitis involving the soft tissues overlying the right temporal bone. No focal fluid collection to suggest an abscess. No mastoid effusion. CT soft tissues neck 04/26/21: Findings suggestive of acute sialadenitis of the right parotid gland. No stone is identified. Cellulitis in the soft tissues around the right ear and parotid gland. No focal fluid collection to suggest an abscess Labs on day of discharge: Labs from last 24 hours 04/30/21 07:05 Plt Count 313 Preliminary micro results at discharge 04/26/21 14:45 Blood Culture - Preliminary Blood NO GROWTH 72 HOURS 04/26/21 14:16 Blood Culture - Preliminary Blood NO GROWTH 72 HOURS PFSH Medical History ADD (attention deficit disorder) Asthma Sciatica of left side Smoker Surgical History H/O cervical discectomy H/O right inguinal hernia repair S/P lumbar discectomy Family History Mother Diabetes Hypertension Father Hypertension Heart disease Sister Hypertension Social History Smoking/Tobacco Use Status: Current every day Tobacco Type: cigarettes Smoking packs per day: 1.5 Smoking cigarettes per day: 30.0 Years smoked: 30 Smoking pack-years: 45.00 Smoking risk assessment performed?: Yes Alcohol Intake: current Alcohol Intake frequency: a few times a month Alcohol type: beer and other Details: 6 pack on weekends Drug use: Never Substance use type: does not use Details: alcohol: t-2. 2 beers Household members: none Number of Children: 2 current occupation: [employer], [employer] x 2 1/2 years Current gender identity: male What type of physical activity do you participate in: other Details: with e mployment Do you feel safe at home: Yes Do you feel safe in your relationship?: Yes
--- NOTE | 2021-04-30 12:41 | PDOC.CMDIS ---
- If Service Date Differs Date of service: 04/30/21 Time of Service: 12:41 LACE Index Scoring Tool - Questions: Length of Stay (in days): 4 - 6 Acuity (Admit via E.D.?): Yes E.D. Visits: 1 - Answers: Total Score: 8 Risk of Readmission: Low Risk Care Management Discharge Reason for Hospitalization: Acute Infectious auricular chondritis Discharge Plan: James will return home today with no services upon discharge. He will drive himself home via private vehicle. CM provided him with a Return to Work letter, at the provider's request. He will follow up with his PCP and discharge plan of care. He is happy to be going home. Patient/Family Education Needs: Review discharge instructions regarding activity levels and medications, discussion of self care needs including ask me three.
== END 2021-04-30 13:09 | disposition home or self-care (01) | DRG 607 ==
LOC: ER 15:00 → MS 15:10
PROVIDERS: Admitting Provider Internal Medicine; Emergency Provider Student in an Organized Health Care Education/Training Program; PCP Nurse Practitioner Family; Visit Provider Internal Medicine
DX: S00.461A Insect bite (nonvenomous) of right ear, initial encounter (principal); H60.11 Cellulitis of right external ear; J20.8 Acute bronchitis due to other specified organisms; F17.210 Nicotine dependence, cigarettes, uncomplicated; F98.8 Other specified behavioral and emotional disorders with onset usually occurring in childhood and adolescence; J45.909 Unspecified asthma, uncomplicated; M54.32 Sciatica, left side; K11.21 Acute sialoadenitis; R13.10 Dysphagia, unspecified; Z20.822 Contact with and (suspected) exposure to COVID-19
CPT/HCPCS: 36415; 70491; 80048; 80053; 80307; 84145; 87040; 87635; 96365; 99285; J1650; 70487; 71046; 83036; 83735; 85025; 85049; 86140; 87070; 87205; 99223; 99232; 99233; 99239; 99284; G0378; J1885; J2543; J3490; J7512

== ENCOUNTER 2021-05-04 16:06 | Outpatient (REF) | payer BC, SELFPAY ==
[2021-05-04 17:12] LABS: C Diff PCR Negative (Negative)
== END 2021-05-04 16:07 | disposition home or self-care (01) ==
LOC: LBN 16:06
PROVIDERS: PCP Nurse Practitioner Family; Visit Provider Nurse Practitioner Family
DX: R19.7 Diarrhea, unspecified (principal)
CPT/HCPCS: 87493

== ENCOUNTER 2021-05-19 15:13 | Outpatient (CLI) | payer BC, SELFPAY ==
--- NOTE | 2021-05-19 11:00 | DI.RAD_ITS ---
Exam(s) XR SHOULDER RT COMPLETE 2+V EXAM: XR SHOULDER RT COMPLETE 2+V CLINICAL HISTORY: right shoulder pain, M25.511. TECHNIQUE: 2D digital imaging was performed. COMPARISON: CR XR SHOULDER RT 1V from 05/27/2020 FINDINGS: There is no evidence of fracture or dislocation. Again noted is evidence of previous rotator cuff huff rgery with a fastener device in the greater tuberosity again evident. Subacromial space is not dimin ished. No calcifications in the subacromial space. No obvious degenerative changes in the glenohume ral joint. Mild degenerative changes in the AC joint. No osseous lesions. IMPRESSION: DATA REPOSITORY: RADIATION DOSE DELIVERED:
== END 2021-05-19 15:33 ==
LOC: DI 15:20
PROVIDERS: PCP Nurse Practitioner Family; Visit Provider Nurse Practitioner Family
DX: M19.011 Primary osteoarthritis, right shoulder (principal)
CPT/HCPCS: 73030

== ENCOUNTER 2021-06-10 18:11 | Outpatient (REF) | payer BC, SELFPAY ==
[2021-06-12 15:08] LABS: COVID-19 RT-PCR UVMMC Result Negative (Negative)
== END 2021-06-10 18:12 | disposition home or self-care (01) ==
LOC: LBN 18:11
PROVIDERS: PCP Nurse Practitioner Family; Visit Provider Nurse Practitioner Family
DX: Z20.822 Contact with and (suspected) exposure to COVID-19 (principal); R51.9 Headache, unspecified
CPT/HCPCS: U0003

== ENCOUNTER 2021-07-21 04:26 | Outpatient (CLI) | payer BC, SELFPAY ==
[2021-07-21 17:02] LABS: Calculated LDL 116 mg/dL (<100); Cholesterol 180 mg/dL (<200); HDL Cholesterol 42 mg/dL (40-60); Triglyceride 113 mg/dL (<150)
== END 2021-07-21 04:27 | disposition home or self-care (01) ==
LOC: LBO 04:26
PROVIDERS: PCP Nurse Practitioner Family; Visit Provider Nurse Practitioner Family
DX: Z13.220 Encounter for screening for lipoid disorders (principal); Z12.5 Encounter for screening for malignant neoplasm of prostate; R35.0 Frequency of micturition
CPT/HCPCS: 36415; 80061; 84153

== ENCOUNTER 2021-11-03 12:35 | Emergency (ER) | payer BC, SELFPAY ==
[2021-11-03 12:38] VITALS: BP 122/79; PULSE 94; RESP 14; TEMP 36.6; O2SAT 95
--- NOTE | 2021-11-03 13:00 | DI.MRI_ITS ---
Exam(s) MR ANGIO BRAIN WO CLINICAL HISTORY: bilateral vision changes. TECHNIQUE: Multiplanar multisequence MRA of the brain was performed. COMPARISON: None. FINDINGS: Carotid Arteries: No aneurysm, occlusion or significant stenosis. Anterior Cerebral Arteries: Right: No aneurysm, occlusion or significant stenosis. Left: No aneurysm, occlusion or significant stenosis. Middle Cerebral Arteries: Right: No aneurysm, occlusion or significant stenosis. Left: No aneurysm, occlusion or significant stenosis. Posterior Cerebral Arteries: Right: No aneurysm, occlusion or significant stenosis. Left: No aneurysm, occlusion or significant stenosis. Vertebral Arteries: Right: No aneurysm, occlusion or significant stenosis. Left: No aneurysm, occlusion or significant stenosis. Basilar Artery: No aneurysm, occlusion or significant stenosis. IMPRESSION: Normal MRA examination of the [place]. DATA REPOSITORY:
--- NOTE | 2021-11-03 13:00 | DI.MRI_ITS ---
Exam(s) MR ANGIO NECK WO EXAM: MR ANGIO NECK WO CLINICAL HISTORY: bilateral vision changes. TECHNIQUE: Multiplanar multisequence MRA of the Neck was performed. COMPARISON: No exams were available for comparison FINDINGS: Common Carotid: Right: No dissection, occlusion or significant stenosis. Left: No dissection, occlusion or significant stenosis. External Carotid: Right: No evidence of occlusion or significant stenosis. Left: No evidence of occlusion or significant stenosis. Internal Carotid: Right: No dissection, occlusion or significant stenosis. Left: No dissection, occlusion or significant stenosis. Vertebral Artery: Right: No dissection, occlusion or significant stenosis. Left: No dissection, occlusion or significant stenosis. IMPRESSION: No evidence of dissection, occlusion or significant stenosis. DATA REPOSITORY:
--- NOTE | 2021-11-03 13:00 | DI.MRI_ITS ---
Exam(s) MR BRAIN WO EXAM: MR BRAIN WO CLINICAL HISTORY: bilateral vision changes TECHNIQUE: Multiplanar multisequence MRI of the brain was performed. COMPARISON: MR MR ANGIO BRAIN WO from 11/03/2021 FINDINGS: VENTRICLES AND EXTRA AXIAL SPACES: Normal in size and morphology for the patient's age. MIDLINE SHIFT: None. CEREBRAL PARENCHYMA: No focus of restricted diffusion to suggest acute infarct. No space-occupying le david identified. No significant atrophy or white matter changes. HEMORRHAGE: None. BRAINSTEM/CEREBELLUM: Normal. CALVARIUM: Normal. VISUALIZED PARANASAL SINUSES/MASTOIDS:Clear. [place]: Normal flow void. PITUITARY GLAND: Unremarkable. OTHER FINDINGS: Orbits unremarkable. IMPRESSION: Unremarkable MRI of the brain. DATA REPOSITORY:
--- NOTE | 2021-11-03 13:22 | ED.GENADUL_ITS ---
Discharge Plan Disposition Patient Disposition: HOME Condition: Stable Discharge Details Clinical Impression: Alteration in vision Primary Care Provider: Hafsa Lo ED Provider: Kemal Granados Home Meds and New Rx's Prescriptions: Continued Nicotrol 10 mg cartridge 1 inh inhalation Q2H PRN PRN (Reason: nicotine cravings) Qty: 168 0RF albuterol sulfate 90 mcg/actuation HFA aerosol inhaler 2 puff inhalation QID PRN (Reason: shortness of breath or wheezing) Qty: 8.5 1RF tamsulosin [Flomax] 0.4 mg capsule 0.4 mg PO DAILY Qty: 90 3RF ibuprofen 600 mg tablet 600 mg PO TID Qty: 15 0RF No Action sumatriptan succinate [Imitrex] 50 mg tablet 50 mg PO ONCE PRN (Reason: migraine headache) Qty: 30 0RF Rx Instructions: take 1 tab at onset of headache; if no relief may repeat 1 tab after at least 2 hrs; max = 4 tabs/24 hr PO methylprednisolone [Medrol ([place])] 4 mg tablets,dose pack See Rx Instructions PO PER PKG DIR Qty: 21 0RF Rx Instructions: PO PER PKG DIR Discharge Instructions Instructions: Ocular Migraine (ED) Additional Instructions: Diagnostic testing today did not determine the cause of your symptoms. Please follow-up with neurology. Call to schedule an appointment. Please contact your primary care physician to arrange follow-up. Return to the ER immediately for any worsening or new concerning symptoms. Referrals: [facility] [Provider Group] Hafsa Lo NP [Primary Care Provider] - Discharge Data Discharge Date/Time-TO BE ENTERED AT DEPARTURE: 11/03/21 16:31 Medical Decision Making <Kandace Granados MD - Last Filed: 11/18/21 10:24> James Zambrano is a 51-year-old man with history of asthma presenting to emergency department with visual changes. Patient reports that for the past 4 to 5 days he has had vision changes. He reports that he has blue and white light around the periphery of his vision when he has both eyes open, and also when he has either eye closed. He reports that he also has kaleidoscope type changes in the center of his vision that is again present with both eyes open and also with either eye closed. He reports that visual changes do not seem to alter substantially with binocular versus monocular vision, or between left and right eye. He reports that he has had mild intermittent headache since onset of symptoms, and has occasionally had a mild throbbing of both eyes. He reports minimal headache right now, no eye pain. There is no injury or other inciting event. He denies fever, cough, shortness of breath, vomiting, diarrhea, numbness, weakness, any other pain. Patient reports that he is able to read and see normally despite vision changes. He denies history of similar symptoms in the past. Feels otherwise well in his usual state of health. On exam patient is very well and nontoxic-appearing. Visual acuity 20/25 b/l, 20/40 left, 20/25 right. Nonfocal neurologic exam. Benign exam of the eyes, visual acuity given visual changes present in both eyes, concern for central etiology of symptoms (migraine, mass, CVA, other) versus less likely ophthalmologic pathology. Plan for screening labs, MRI/MRA for further evaluation as patient has had no history of similar symptoms in the past, no history of migraines. I discussed patient presentation with Dr. Robles of neurology, who agreed with plan for MRI/MRA, recommended treat acutely for migraine, if work-up negative plan for ophtho consult. Will obtain screening labs. Exam/hx at this time is not c/w glaucoma, retinal detachment, vitreous hemorrhage, endophthalmitis, other acute emergent pathology of the globe. MRI/MRA neg for acute process per radiology. Pt reports headache resolved with meds, visual changes present and unchanged. I discussed Pt presentation and results with Dr. Meza of ophtho at [facility], who states etiology very unlikely to be acute eye pathology at this time, recommends outpt f/u with neurology. I had a discussion with Patient regarding return to emergency department precautions, home care, and importance of outpatient follow-up. Pt verbalizes understanding of the plan and is amenable. Patient discharged to home with clear plan for outpatient follow-up. All questions were answered. Pt placed on care management list for outpt neuro f/u. Disposition decision was made weighing the risks and benefits of hospitalization versus outpatient treatment, the risk for further decompensation, and the patient's wishes. Medical Records Medical records reviewed: Yes I reviewed the patient's medical records. Imaging Data Radiologic Study: Attestation: I personally reviewed and interpreted this imaging study as follows: Radiologist's impression: EXAM: ? MR BRAIN WO CLINICAL HISTORY:? bilateral vision changes TECHNIQUE:? Multiplanar multisequence MRI of the brain was performed. COMPARISON:? MR MR ANGIO BRAIN WO from 11/03/2021 FINDINGS: VENTRICLES AND EXTRA AXIAL SPACES: Normal in size and morphology for the patient's age. MIDLINE SHIFT: None. CEREBRAL PARENCHYMA: No focus of restricted diffusion to suggest acute infarct. No space-occupying lesion identified.? No significant atrophy or white matter changes.? HEMORRHAGE: None. BRAINSTEM/CEREBELLUM: Normal. CALVARIUM: Normal.? VISUALIZED PARANASAL SINUSES/MASTOIDS:Clear. [place]: Normal flow void. PITUITARY GLAND: Unremarkable. OTHER FINDINGS: Orbits unremarkable. IMPRESSION: Unremarkable MRI of the brain. Exam(s) MR ANGIO BRAIN WO CLINICAL HISTORY: ? bilateral vision changes. ? TECHNIQUE:? Multiplanar multisequence MRA of the brain? was performed. COMPARISON:? None. FINDINGS: Carotid Arteries: No aneurysm, occlusion or significant stenosis. Anterior Cerebral Arteries: Right:? No aneurysm, occlusion or significant stenosis. Left:? No aneurysm, occlusion or significant stenosis. Middle Cerebral Arteries: Right:? No aneurysm, occlusion or significant stenosis. Left:? No aneurysm, occlusion or significant stenosis. Posterior Cerebral Arteries: Right:? No aneurysm, occlusion or significant stenosis. Left:? No aneurysm, occlusion or significant stenosis. Vertebral Arteries: Right:? No aneurysm, occlusion or significant stenosis.? Left:? No aneurysm, occlusion or significant stenosis. Basilar Artery:? No aneurysm, occlusion or significant stenosis. IMPRESSION: Normal MRA examination of the [place]. MR ANGIO NECK WO EXAM:? MR ANGIO NECK WO CLINICAL HISTORY: ? bilateral vision changes. ? TECHNIQUE:? Multiplanar multisequence MRA of the Neck was performed. COMPARISON:? No exams were available for comparison FINDINGS: Common Carotid: Right: No dissection, occlusion or significant stenosis. Left: No dissection, occlusion or significant stenosis. External Carotid: Right: No evidence of occlusion or significant stenosis. Left: No evidence of occlusion or significant stenosis. Internal Carotid: Right: No dissection, occlusion or significant stenosis. Left: No dissection, occlusion or significant stenosis. Vertebral Artery: Right: No dissection, occlusion or significant stenosis. Left: No dissection, occlusion or significant stenosis. IMPRESSION: No evidence of dissection, occlusion or significant stenosis.? <Kemal Granados MD - Last Filed: 11/03/21 22:53> Care signed out by Dr. Kandace Granados. Please see her documentation regarding initial ED presentation and course. Briefly, patient has had negative MRI MRA of the brain. Ophthalmology was consulted and recommended outpatient follow-up with neurology. Patient receiving Compazine and Benadryl for treatment of potential ocular migraine. Labs reviewed and nondiagnostic. Plan for discharge with pcp and neuro followup to be scheduled. Lab Data Lab results reviewed: Yes I reviewed the patient's lab results. Labs: Laboratory Tests Range/Units 11/03/21 11/03/21 15:28 15:28 WBC (4.4-10.8) 10^3/uL 8.75 RBC (4.36-5.78) 10^6/uL 4.72 Hgb (13.5-17.5) g/dL 14.6 Hct (40.0-50.0) % 44.1 MCV (80-95) fL 93.4 MCH (27.0-33.0) pg 30.9 MCHC (32.0-36.0) % 33.1 RDW (11.8-14.1) % 13.2 Plt Count (130-400) 10^3/uL 294 MPV (8.0-11.0) fL 9.5 Immature Gran % 0.3 Neutrophils % 61.3 Lymphocytes % 26.4 Monocytes % 9.6 Eosinophils % 1.9 Basophils % 0.5 Nucleated RBC % % 0 Absolute Neutrophils (1.2-6.7) 10^3/uL 5.36 Absolute Lymphocytes (1.2-3.4) 10^3/uL 2.31 Absolute Monocytes (0.1-0.8) 10^3/uL 0.84 H Absolute Eosinophils (0.0-0.7) 10^3/uL 0.17 Absolute Basophils (0.0-0.2) 10^3/uL 0.04 Sodium (136-145) mmol/L 142 Potassium (3.5-5.1) mmol/L 3.7 Chloride (98-107) mmol/L 107 Carbon Dioxide (21.0-32.0) mmol/L 27.8 Anion Gap (3-11) mmol/L 7.2 BUN (7-18) mg/dL 15 Creatinine (0.70-1.30) mg/dL 0.7 Estimated GFR/1.73 m2 (mL/min/1.73m2) >= 60.00 Glucose (74-106) mg/dL 128 H Calcium (8.5-10.1) mg/dL 8.3 L Total Bilirubin (0.2-1.0) mg/dL 0.3 AST (15-37) U/L 12 L ALT (16-63) U/L 29 Alkaline Phosphatase (46-116) U/L 57 Total Protein (6.4-8.2) g/dL 6.7 Albumin (3.4-5.0) g/dL 3.1 L HPI <Kandace Granados MD - Last Filed: 11/18/21 10:24> General Mode of arrival: ambulatory . Date/Time Provider Initiated Documentation: 11/03/21 12:35 . Limitations to Documentation: no limitations . Information obtained by: patient, RN notes reviewed and old records reviewed . HPI Narrative: James Zambrano is a 51-year-old man with history of asthma presenting to emergency department with visual changes. Patient reports that for the past 4 to 5 days he has had vision changes. He reports that he has blue and white light around the periphery of his vision when he has both eyes open, and also when he has either eye closed. He reports that he also has kaleidoscope type changes in the center of his vision that is again present with both eyes open and also with either eye closed. He reports that visual changes do not seem to alter substantially with binocular versus monocular vision, or between left and right eye. He reports that he has had mild intermittent headache since onset of symptoms, and has occasionally had a mild throbbing of both eyes. He reports minimal headache right now, no eye pain. There is no injury or other inciting event. He denies fever, cough, shortness of breath, vomiting, diarrhea, numbness, weakness, any other pain. Patient reports that he is able to read and see normally despite vision changes. He denies history of similar symptoms in the past. Feels otherwise well and in his usual state of health. Related Data Home Medications Medication Instructions Recorded Confirmed ibuprofen 600 mg tablet 600 mg PO TID #15 tab 04/30/21 11/11/21 albuterol sulfate 90 mcg/actuation 2 puff INHALATION QID PRN #8.5 g 06/16/21 11/11/21 aerosol inhaler nicotine 10 mg inhalation 1 inh INHALATION Q2H PRN PRN #168 07/14/21 11/11/21 cartridge (Nicotrol) ea tamsulosin 0.4 mg capsule (Flomax) 0.4 mg PO DAILY #90 cap 07/23/21 11/11/21 sumatriptan succinate 50 mg tablet 50 mg PO ONCE PRN #30 tab 11/04/21 11/11/21 (Imitrex) methylprednisolone 4 mg tablets in See Rx Instructions PO PER PKG DIR 11/11/21 11/11/21 a dose pack (Medrol ([place])) #21 dose pk Previous Rx's Medication Instructions Recorded ibuprofen 600 mg tablet 600 mg PO TID #15 tab 04/30/21 albuterol sulfate 90 mcg/actuation 2 puff INHALATION QID PRN #8.5 g 06/16/21 aerosol inhaler nicotine 10 mg inhalation 1 inh INHALATION Q2H PRN PRN #168 07/14/21 cartridge (Nicotrol) ea tamsulosin 0.4 mg capsule (Flomax) 0.4 mg PO DAILY #90 cap 07/23/21 sumatriptan succinate 50 mg tablet 50 mg PO ONCE PRN #30 tab 11/04/21 (Imitrex) methylprednisolone 4 mg tablets in See Rx Instructions PO PER PKG DIR 11/11/21 a dose pack (Medrol ([place])) #21 dose pk Allergies Allergy/AdvReac Type Severity Reaction Status Date / Time No Known Allergies Allergy Verified 11/11/21 13:55 General Stated Complaint: EyeProblem GILBERTO: 3 Review of Systems <Kandace Granados MD - Last Filed: 11/18/21 10:24> Narrative: Constitutional: denies fevers Eyes: Reports bilateral vision changes, eye pain not currently occurring ENT: denies ear pain, dental pain, sore throat Cardiovascular: denies chest pain, edema Respiratory: denies SOB, cough GI: denies abdominal pain, vomiting, diarrhea : denies flank pain MSK: denies back pain, neck pain, arthralgias, myalgias Skin: denies rash Neuro: denies numbness, weakness, reports mild headache PFSH <Kandace Granados MD - Last Filed: 11/18/21 10:24> All Active Problems Visual disturbance (Acute) Migraine headache with aura (Acute) Ocular migraine (Acute) Urinary frequency (Chronic) Degenerative joint disease (DJD) of lumbar spine (Chronic) Tobacco abuse (Chronic) Medical History ADD (attention deficit disorder) Asthma Surgical History H/O cervical discectomy H/O right inguinal hernia repair S/P lumbar discectomy Status post rotator cuff repair right, DOS: 04/13/2020 Family History Mother Diabetes Hypertension Father Hypertension Heart disease Sister Hypertension Social History Smoking/Tobacco Use Status: Current-Occasional Tobacco Type: cigarettes Smoking packs per day: 1.5 Smoking cigarettes per day: 30.0 Years smoked: 30 Smoking pack-years: 45.00 Tobacco: How many years used: 35 Quit status: considering quitting Second Hand Exposure: Yes Smoking risk assessment performed?: Yes Alcohol Intake: current Alcohol Intake frequency: holidays/special occasions only Details: 6 pack on weekends Drug use: Occasionally Substance use type: marijuana Details: alcohol: t-2. 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 Pets and animals: No Sexually active: Yes Do you think of yourself as: straight/heterosexual Current gender identity: male What is your relationship status?: How often do you talk on the phone with friends or family?: once per week How often do you get together with friends or relatives?: once per week How often do you attend baptism or nondenominational services?: decline to answer Do you belong to any clubs or organized social groups?: no Panel score (0-1 are the most socially isolated patients): 0 Nydia/Confucianism: Zoroastrian Special nydia needs: No Seatbelt use: always Helmet use: Yes Helmet use: always Drive intox or ride w/intox local company refrigerated truck driver: No Do you feel safe at home: Yes Do you feel safe in your relationship?: Yes Exam <Kandace Granados MD - Last Filed: 11/18/21 10:24> Narrative Exam Narrative: Constitutional: well and [id number], pleasant, conversing normally HENT: head atraumatic/normocephalic/normal inspection, mucous membranes moist, no temporal tenderness to palpation Eyes: conjunctiva normal, sclera normal, pupils 3mm b/l ERRLA, EOMI without nystagmus, funduscopic exam attempted and limited Neck: no stridor, normal painless ROM, trachea midline, supple, no meningismus Chest: normal inspection Resp: normal work of breathing, LCTAB Cardio: normal rate, normal rhythm, no murmur appreciated Skin: warm, dry, normal color, no rash Neuro: alert, not altered, cranial nerves II through XII intact, motor 5 out of 5 throughout, no pronator drift, normal gait, normal tone Ext: no edema Psych: normal mood, normal affect, normal behavior Course <Kandace Granados MD - Last Filed: 11/18/21 10:24> Vital Signs Vital signs: Vital Signs Temperature 36.6 C 11/03/21 12:38 Pulse 94 H 11/03/21 12:38 Respiratory Rate 14 11/03/21 12:38 Blood Pressure 122/79 11/03/21 12:38 Pulse Oximetry 95 11/03/21 12:38 Temperature 36.6 C 11/03/21 12:38 Temperature Source Temporal Artery Scan 11/03/21 12:38 Pulse 94 H 11/03/21 12:38 Respiratory Rate 14 11/03/21 12:38 Respiratory Effort Non-Labored 11/03/21 12:44 Blood Pressure 122/79 11/03/21 12:38 Blood Pressure Position Sitting 11/03/21 12:38 Pulse Oximetry 95 11/03/21 12:38 Oxygen Delivery Method Room Air 11/03/21 12:38 Oxygen Flow Rate 0 11/03/21 12:38 Sign Out <Kandace Granados MD - Last Filed: 11/18/21 10:24> Sign Out Data: Sign Out Comment: Patient signed out to Dr. Granados with labs, ophthalmology consult pending Last updated by Kandace Granados MD at 11/03/21 15:35 PAWSS <Kandace Granados MD - Last Filed: 11/18/21 10:24> Have you Been Recently Intoxicated or Drunk Within the Last 30 days?: No Have you Ever Experienced Previous Episodes of Alcohol Withdrawal?: No Have you ever Experienced Withdrawal Seizures?: No Have you ever Experienced Delirium Tremens(DT)s?: No Have you ever undergone Alcohol Rehabilitation Treatment (i.e, inpt ot outpatient treatment programs)?: No Have you ever Experienced Blackouts?: No Have you ever Combined Alcohol with other Downers within the last 90 days?: No Have you ever Combined Alcohol with any other Substance of Abuse during the last 90 days?: No Positive Blood Alcohol level on Presentation? [PCS.BAL]: No Evidence of Increased Autonomic Activity (i.e. HR>120, tremor, sweating, agitation, nausea)?: No Result: 0
[2021-11-03] MEDS: Normal Saline 1,000 ML 1000 ML IV (14:54)
[2021-11-03] MEDS: Prochlorperazine 10 MG/2 ML VIAL IVP (14:55)
[2021-11-03] MEDS: diphenhydrAMINE 50 MG/ML VIAL 25 MG IVP (14:55)
[2021-11-03 15:37] LABS: Abs Immature Grans 0.03 10^3/uL (0.0-0.06); Absolute Basophil Count 0.04 10^3/uL (0.0-0.2); Absolute Eosinophil Count 0.17 10^3/uL (0.0-0.7); Absolute Lymphocyte Count 2.31 10^3/uL (1.2-3.4); Absolute Monocyte Count 0.84 10^3/uL (0.1-0.8); Absolute Neutrophil Count 5.36 10^3/uL (1.2-6.7); Basophils % 0.5; Eosinophils % 1.9; HCT 44.1 % (40.0-50.0); HGB 14.6 g/dL (13.5-17.5); Immature Grans % 0.3; Lymphocytes % 26.4; MCH 30.9 pg (27.0-33.0); MCHC 33.1 % (32.0-36.0); MCV 93.4 fL (80-95); MPV 9.5 fL (8.0-11.0); Monocytes % 9.6; Neutrophils % 61.3; Nucleated RBC 0 %; Platelet Count 294 10^3/uL (130-400); RBC 4.72 10^6/uL (4.36-5.78); RDW 13.2 % (11.8-14.1); RDW-SD 45.2 fL; WBC 8.75 10^3/uL (4.4-10.8)
[2021-11-03 15:49] LABS: ALT 29 U/L (16-63); AST 12 U/L (15-37); Albumin 3.1 g/dL (3.4-5.0); Alkaline Phosphatase 57 U/L (46-116); Anion Gap 7.2 mmol/L (3-11); BUN 15 mg/dL (7-18); Bilirubin, Total 0.3 mg/dL (0.2-1.0); CO2 27.8 mmol/L (21.0-32.0); CREATININE 0.7 mg/dL (0.70-1.30); Calcium 8.3 mg/dL (8.5-10.1); Chloride 107 mmol/L (98-107); Glucose 128 mg/dL (74-106); Potassium 3.7 mmol/L (3.5-5.1); Sodium 142 mmol/L (136-145); Total Protein 6.7 g/dL (6.4-8.2)
[2021-11-03 16:22] VITALS: BP 116/73; PULSE 68; RESP 17; TEMP 36.6; O2SAT 96
--- NOTE | 2021-11-03 18:02 | NUR.NOTE ---
Nursing Note referral to cm for referral to neuro for flashing lights iin eyes
== END 2021-11-03 16:31 | disposition home or self-care (01) ==
PROVIDERS: Student in an Organized Health Care Education/Training Program; Emergency Provider Student in an Organized Health Care Education/Training Program; PCP Nurse Practitioner Family
DX: H53.8 Other visual disturbances (principal)
CPT/HCPCS: 36415; 70544; 70547; 80053; 96361; 96374; 96375; 99284; 70551; 85025; J0780; J1200

== ENCOUNTER 2022-05-19 19:36 | Outpatient (REF) | payer BC, SELFPAY | END 2022-05-19 19:37 | disposition home or self-care (01) | LOC: LBN 19:36 | PROVIDERS: PCP Nurse Practitioner Family; Visit Provider Physician Assistant | DX: L98.8 Other specified disorders of the skin and subcutaneous tissue (principal); M79.671 Pain in right foot; M79.672 Pain in left foot; L08.89 Other specified local infections of the skin and subcutaneous tissue | CPT/HCPCS: 87077; 87070; 87186; 87205 ==

== ENCOUNTER 2022-06-21 11:59 | Outpatient (CLI) | payer BC, SELFPAY ==
--- NOTE | 2022-06-21 11:39 | DI.RAD_ITS ---
Exam(s) XR ELBOW RT COMPLETE EXAM: XR ELBOW RT COMPLETE CLINICAL HISTORY: RIGHT ELBOW PAIN. TECHNIQUE: 2D digital imaging was performed. COMPARISON: No exams were available for comparison FINDINGS: 3 views No evidence of fracture or joint effusion. No prominent swelling of the olecranon bursa. Radial hea d appears intact. There are some degenerative changes on the medial aspect of the joint. Medial epi condyle unremarkable. Lateral epicondyle exhibits finding which may be related to epicondylitis or n ormal variant. IMPRESSION: As above DATA REPOSITORY: RADIATION DOSE DELIVERED:
== END 2022-06-21 12:00 | disposition home or self-care (01) ==
LOC: DIORS 11:59
PROVIDERS: PCP Nurse Practitioner Family; Referring Provider Nurse Practitioner Family; Visit Provider Student in an Organized Health Care Education/Training Program
DX: M25.521 Pain in right elbow (principal); M77.11 Lateral epicondylitis, right elbow
CPT/HCPCS: 73080

== ENCOUNTER → 2022-06-24 00:16 | Outpatient (CLI) | payer OTHER, SELFPAY ==
--- NOTE | 2022-06-24 07:15 | DI.MRI_ITS ---
Exam(s) MR UPPER JOINT RT WO EXAM: MR UPPER JOINT RT WO CLINICAL HISTORY: Distal biceps pain, weakness,TRAUMATIC RUPTURE,S46.211A. TECHNIQUE: Multiplanar multisequence MRI was performed. COMPARISON: Plain films dated 21 June 2022 FINDINGS: Bones: There is no fracture or contusion pattern. Prominent radial tubercle with mild edema. Biceps tendon: Edema in and surrounding the distal biceps tendon. No focal tear. Brachialis tendon: Intact Common flexor tendons: Mild edema at origin of common flexor tendon. Common extensor tendons: Unremarkable. Soft tissues: Unremarkable. IMPRESSION: Tendinitis of the distal biceps tendon without visible focal tear. DATA REPOSITORY:
== END ==
PROVIDERS: PCP Nurse Practitioner Family; Visit Provider Student in an Organized Health Care Education/Training Program
DX: M75.21 Bicipital tendinitis, right shoulder (principal)
CPT/HCPCS: 73221

== ENCOUNTER 2022-12-30 16:07 | Outpatient (CLI) | payer BC, SELFPAY ==
[2022-12-30 15:34] LABS: Hemoglobin A1C 5.8 % (<5.7)
[2022-12-30 15:59] LABS: Anion Gap 9.8 mmol/L (3-11); BUN 12 mg/dL (7-18); CO2 27.2 mmol/L (21.0-32.0); CREATININE 0.9 mg/dL (0.70-1.30); Chloride 105 mmol/L (98-107); Glucose 101 mg/dL (74-106); Potassium 3.6 mmol/L (3.5-5.1); Sodium 142 mmol/L (136-145)
[2023-01-02 09:34] LABS: PSA, Screening 6.3 ng/mL (<=3.5)
== END 2022-12-30 16:08 | disposition home or self-care (01) ==
LOC: LBO 16:08
PROVIDERS: PCP Nurse Practitioner Family; Visit Provider Nurse Practitioner Family
DX: Z00.00 Encounter for general adult medical examination without abnormal findings (principal); R73.03 Prediabetes; E78.5 Hyperlipidemia, unspecified; F17.210 Nicotine dependence, cigarettes, uncomplicated; Z12.5 Encounter for screening for malignant neoplasm of prostate
CPT/HCPCS: 36415; 80048; 84153; 83036

== ENCOUNTER 2023-05-16 03:19 | Outpatient (CLI) | payer BC, SELFPAY ==
[2023-05-17 19:14] LABS: PSA, Screening 7.6 ng/mL (<=3.5)
== END 2023-05-16 03:20 | disposition home or self-care (01) ==
LOC: LBO 03:19
PROVIDERS: PCP Nurse Practitioner Family; Visit Provider Nurse Practitioner Gerontology
DX: R39.89 Other symptoms and signs involving the genitourinary system (principal); R97.20 Elevated prostate specific antigen [PSA]; Z12.5 Encounter for screening for malignant neoplasm of prostate
CPT/HCPCS: 36415; 84153

== ENCOUNTER 2024-02-08 07:35 | Emergency (ER) | payer BC, SELFPAY | END 2024-02-08 13:33 | PROVIDERS: PCP Nurse Practitioner Family | DX: S61.411A Laceration without foreign body of right hand, initial encounter (principal); Y99.0 Civilian activity done for income or pay; W26.8XXA Contact with other sharp object(s), not elsewhere classified, initial encounter | CPT/HCPCS: 12001 ==

== ENCOUNTER 2024-11-13 09:28 | Outpatient (CLI) | payer OTHER, SELFPAY ==
--- NOTE | 2024-11-13 09:30 | DI.RAD_ITS ---
Exam(s) XR ANKLE RT COMPLETE EXAM: XR ANKLE RT COMPLETE CLINICAL HISTORY: eval pathology M25.571 PAIN RT ANKLE AND JOINTS. TECHNIQUE: 2D digital imaging was performed. COMPARISON: No exams were available for comparison FINDINGS: 3 views No evidence of fracture nor diastasis of the ankle mortise. Talar dome unremarkable. Very minimal d egenerative changes in the tibiotalar joint. Subtalar joint appears unremarkable. No pes planus. N o inferior calcaneal spur nor enthesophytes. Bone density is normal. No obvious osseous tarsal coal ition. IMPRESSION: No significant radiographic findings in the right ankle. DATA REPOSITORY: RADIATION DOSE DELIVERED:
--- NOTE | 2024-11-13 09:30 | DI.RAD_ITS ---
Exam(s) XR HIP RT COMPLETE AP PELVIS EXAM: XR HIP RT COMPLETE AP PELVIS CLINICAL HISTORY: eval pathology M25.551 PAIN RT HIP. TECHNIQUE: 2D digital imaging was performed. COMPARISON: No exams were available for comparison FINDINGS: Two views. No evidence of pelvic nor hip fracture. No osseous lesions. There are some degenerative changes in the right hip joint with marginal femoral head osteophytes. S ome joint space narrowing is noted inferiorly in the hip joint. Superior aspect of right hip joint e xhibits normal height. Mild degenerative changes in the opposite-left hip are noted. No osseous les ions. 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 DATA REPOSITORY: RADIATION DOSE DELIVERED:
--- NOTE | 2024-11-13 09:30 | DI.RAD_ITS ---
Exam(s) XR KNEE RT 3V AP,LAT,RIC EXAM: XR KNEE RT 3V AP,LAT,RIC CLINICAL HISTORY: eval pathology M25.561 PAIN RT KNEE. TECHNIQUE: 2D digital imaging was performed. COMPARISON: No exams were available for comparison FINDINGS: 3 views No evidence of fracture. Small amount of increased joint fluid without evidence of a large joint eff usion. No degenerative changes evident. No osteochondral defects. Bone density normal. No osseous lesions. IMPRESSION: No significant radiograph findings in the right knee. DATA REPOSITORY: RADIATION DOSE DELIVERED:
== END 2024-11-13 09:48 ==
PROVIDERS: PCP Nurse Practitioner Family; Visit Provider Nurse Practitioner Family
DX: M25.551 Pain in right hip (principal); M25.571 Pain in right ankle and joints of right foot; M25.561 Pain in right knee
CPT/HCPCS: 73562; 73502; 73610

== ENCOUNTER 2024-11-20 10:17 | Outpatient (CLI) | payer BC, SELFPAY ==
[2024-11-20 12:20] LABS: HCT 50.6 % (40.0-50.0); HGB 16.8 g/dL (13.5-17.5); MCH 31.1 pg (27.0-33.0); MCHC 33.2 % (32.0-36.0); MCV 94 fL (80-95); MPV 9.9 fL (8.0-11.0); Platelet Count 338 10^3/uL (130-400); RDW 12.7 % (11.8-14.1); RDW-SD 44.4 fL; WBC 7.85 10^3/uL (4.4-10.8)
[2024-11-20 13:31] LABS: ALT 33 U/L (16-63); AST 16 U/L (15-37); Albumin 3.6 g/dL (3.4-5.0); Alkaline Phosphatase 77 U/L (46-116); Anion Gap 4.3 mmol/L (3-11); BUN 12 mg/dL (7-18); Bilirubin, Total 0.35 mg/dL (0.2-1.0); CO2 33.7 mmol/L (21.0-32.0); CREATININE 0.9 mg/dL (0.70-1.30); Calcium 9.6 mg/dL (8.5-10.1); Chloride 105 mmol/L (98-107); Estimated GFR 102.12 (mL/min/1.73m2); Glucose 90 mg/dL (74-106); Potassium 4.5 mmol/L (3.5-5.1); Sodium 143 mmol/L (136-145); TSH (W/Ref FT4) 1.79 uIU/mL (0.36-3.74); Total Protein 7.4 g/dL (6.4-8.2)
[2024-11-20 14:48] LABS: Calculated LDL 131 mg/dL (<100); Cholesterol 204 mg/dL (<200); HDL Cholesterol 41 mg/dL (40-60); Triglyceride 164 mg/dL (<150)
[2024-11-20 17:34] LABS: Hemoglobin A1C 5.8 % (<5.7)
[2024-11-20 20:16] LABS: PSA, Screening 8.6 ng/mL (<=3.5)
[2024-11-21 11:15] LABS: HIV-1/2 Ag & Ab Screen Negative (Negative)
[2024-11-21 11:37] LABS: Hepatitis C Ab w Rflx HCV PCR Negative (Negative)
[2024-11-21 11:58] LABS: HBs Antibody, Quant 3.7 mIU/mL (See Note); Hep B Surface Ab Negative (See Note); Hepatitis B Core Antibody Negative (Negative); Hepatitis B Surface Antigen Negative (Negative)
== END 2024-11-20 10:18 | disposition home or self-care (01) ==
LOC: LOS 10:18
PROVIDERS: PCP Nurse Practitioner Family; Referring Provider Nurse Practitioner Family; Visit Provider Nurse Practitioner Family
DX: Z11.59 Encounter for screening for other viral diseases (principal); R73.03 Prediabetes; E78.5 Hyperlipidemia, unspecified; Z12.5 Encounter for screening for malignant neoplasm of prostate; Z11.4 Encounter for screening for human immunodeficiency virus [HIV]
CPT/HCPCS: 36415; 80053; 80061; 84153; 85027; 86704; 86706; 86803; 87340; 87389; 83036; 84443

== ENCOUNTER 2024-12-18 02:19 | Outpatient (CLI) | payer OTHER, SELFPAY ==
--- NOTE | 2024-12-18 07:00 | DI.MRI_ITS ---
Exam(s) MR LOWER JOINT RT WO EXAM: MR LOWER JOINT RT WO CLINICAL HISTORY: ACUTE RT HIP pain, consider labral tear,M25.551 TECHNIQUE: Multiplanar multisequence MRI of Pelvis was performed COMPARISON: MR MR lower joint LT wo from 08/01/2018 FINDINGS: Bones: There is no fracture or contusion pattern. No bone marrow edema is seen. Joints: No significant joint effusion is present. Degenerative changes of both hip joints with spurr ing from both acetabula and margins of the femoral heads. There are defects in both superior labral, consistent with tears. On the right, there is an adjacent paralabral cyst measuring 10 by 25 by 5 m illimeters. There is an additional 5mm cyst. A 10mm cyst is present adjacent to the inferior labrum . On the left there is a 20 x 41 x 15mm lobulated cyst adjacent to the superior labrum. The SI joints and symphysis pubis are well maintained. Musculotendinous structures: Musculotendinous structures demonstrate no acute abnormality. Intrapelvic structures demonstrate no significant abnormality. IMPRESSION: Bilateral superior labral tears. Bilateral paralabral cysts, left larger than right. DATA REPOSITORY:
== END 2024-12-18 02:39 ==
LOC: DI 02:20
PROVIDERS: PCP Nurse Practitioner Family; Visit Provider Nurse Practitioner Family
DX: M25.551 Pain in right hip (principal)
CPT/HCPCS: 73721

== ENCOUNTER 2024-12-23 15:13 | Outpatient (REF) | payer BC, SELFPAY ==
--- NOTE | 2024-12-23 13:30 | PROST_PTH ---
PATIENT: James Swan LOC: [facility] U#:[id number] AGE/SX: 54/M ROOM: RE12/23/[address]: Esteban Marquez MD : 1970 BED: DIS: 12/23/2024 SPEC #: [id number] RECD: 12/23/24 17:40 STATUS: YOUNG RE #: [id number] MIHCAEL: 12/23/24 13:[address]: Esteban Marquez DEPT: Surgical Specimen RECD BY: Julieta Lord ENTERED: 12/23/24 17:43 SP TYPE: PROST OTHR DR: Hafsa Lo, VAMSI Tissues: 1 - PROSTATE NEEDLE BIOPSY 2 - PROSTATE NEEDLE BIOPSY 3 - PROSTATE NEEDLE BIOPSY 4 - PROSTATE NEEDLE BIOPSY 5 - PROSTATE NEEDLE BIOPSY 6 - PROSTATE NEEDLE BIOPSY 7 - PROSTATE NEEDLE BIOPSY 8 - PROSTATE NEEDLE BIOPSY 9 - PROSTATE NEEDLE BIOPSY 10 - PROSTATE NEEDLE BIOPSY 11 - PROSTATE NEEDLE BIOPSY 12 - PROSTATE NEEDLE BIOPSY Procedures: GROSS AND MICRO LEVEL 4 Comments: [id number]
== END 2024-12-23 15:14 | disposition home or self-care (01) ==
LOC: LBN 15:13
PROVIDERS: PCP Nurse Practitioner Family; Visit Provider Urology
DX: N40.0 Benign prostatic hyperplasia without lower urinary tract symptoms (principal); N42.89 Other specified disorders of prostate
CPT/HCPCS: 88305

== ENCOUNTER 2025-02-14 06:14 | Day surgery (SDC) | payer BC, SELFPAY ==
[2025-02-14 06:27] VITALS: BP 109/87; PULSE 89; RESP 17; TEMP 37; O2SAT 94
[2025-02-14] MEDS: Lactated Ringers 1,000 ML 80 ML IV (06:43)
--- NOTE | 2025-02-14 07:06 | W.ANESPRE ---
General Info Date of Service Date Performed: 02/14/25 Height: 6 ft Weight: 95.1 kg Body Mass Index (BMI): 28.4 Surgical Procedure: Operation Date: 02/14/25 07:35 Proposed Procedure Side Surgeon nicole Laird MD Meds Allergies and Home Medications Allergies Allergy/AdvReac Type Severity Reaction Status Date / Time No Known Allergies Allergy Verified 02/14/25 06:35 Home Medication ?Medication ?Instructions ?Recorded albuterol sulfate 90 mcg/actuation 2 puff inhalation QID PRN 12/05/24 aerosol inhaler shortness of breath or wheezing #8.5 grams tamsulosin 0.4 mg capsule (Flomax) 0.4 mg PO DAILY #90 caps 01/14/25 bisacodyl 5 mg tablet,delayed 5 mg PO ONCE #4 tabs 01/30/25 release (Dulcolax (bisacodyl)) polyethylene glycol 3350 17 17 g PO ONCE #238 grams 01/30/25 gram/dose oral powder Current Visit Medications: Current Medications Generic Name Dose Route Start Last Admin Trade Name Freq PRN Reason Stop Dose Admin Ringer's Solution 1,000 mls @ 80 mls/hr 02/14/25 06:00 02/14/25 06:43 IV 03/15/25 23:59 80 mls/hr INFUSION LIYA Administration IV Miscellaneous Supplies 1 each 02/14/25 06:00 Iv Access IV 03/15/25 23:59 DIRECTED LIYA Sodium Chloride 0 ml 02/14/25 06:00 Normal Saline Flush 10 Ml Syr IV 03/15/25 23:59 PRN PRN Sodium Chloride 0 ml 02/14/25 06:00 Normal Saline 10 Ml Vial IJ 03/15/25 23:59 DIRECTED PRN Sterile Water 0 ml 02/14/25 06:00 Water,Injection,Sterile 10 Ml Vial IJ 03/15/25 23:59 DIRECTED PRN PFSH Active Problems Active Problems: Problem Status Onset Code Bilateral primary osteoarthritis of hip Acute M16.0 Labral tear of hip joint Acute S73.199A Left hip pain Acute M25.552 Acute right hip pain Acute M25.551 Lower urinary tract symptoms (LUTS) Chronic R39.9 Elevated PSA Chronic R97.20 Retinal dystrophy Chronic ~10/2021 H35.50 Hyperlipidemia Chronic E78.5 Prediabetes Chronic R73.03 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 Cigarette smoker Chronic F17.210 Medical History Medical History Migraine headache without aura Asthma In childhood ADD (attention deficit disorder) Surgical History Surgical History S/P right rotator cuff repair (04/13/20) S/P lumbar discectomy H/O right inguinal hernia repair H/O cervical discectomy C4-C7 Anterior Cervical Discectomy with fusion and plating related to cervical stenosis with myelopathy (2013 @ [facility] [place]) Tobacco Smoking/Tobacco Use Status: Current-Occasional Tobacco Type: cigarettes Smoking packs per day: 1.5 Smoking cigarettes per day: 30.0 Years smoked: 41 Smoking pack-years: 61.50 Passive smoking exposure: Yes Second hand exposure: Yes Alcohol Alcohol Intake: current Alcohol intake frequency: holidays/special occasions only Alcohol type: beer and hard liquor Details: 6 pack on weekends (5-6 drinks on typical day, 6 or more monthly or less) Substance Use Substance use: Occasionally Substance use type: marijuana Details: alcohol: t-2. 2 beers, marijuana use t-1, cigarettes t-1 Vital Signs and Lab Results Vital Signs Most Recent Vital Signs in EMR: Most Recent Vital Signs Temp Pulse Resp BP Pulse Ox 37.0 C 89 17 109/87 94 02/14/25 06:27 02/14/25 06:27 02/14/25 06:27 02/14/25 06:27 02/14/25 06:27 Lab Results Blood Type / Crossmatch: No Data to Display Complete Blood Count: No Data to Display Complete Metabolic Panel: No Data to Display Liver Function Panel: No Data to Display Coagulation Panel: No Data to Display Cardiac Panel: No Data to Display Arterial Blood Gas: No Data to Display Venous Blood Gas: No Data to Display Pancreas Panel: No Data to Display Thyroid Panel: No Data to Display Infectious Disease: No Data to Display Blood Cultures: No Data to Display Toxicology Panel: No Data to Display Anesthesia Assessment and Plan Anesthesia History Personal History: No History of Anesthesia Complications Family History: No Family History of Anesthesia Complications Exercise Tolerance Exercise Tolerance: Metabolic Equivalents>4 Cardiac & Pulmonary Exam Cardiac Exam: Normal S1/S2 Heart Sounds Pulmonary Exam: Rhonchi Present Implantable Cardiac Device Does patient have a Pacemaker or an ICD?: No Airway Exam Known Difficult Airway: No Mallampati Class: 2 Mouth Opening: Normal (> 3cm) Thyromental Distance: Greater than 3 cm Neck Range of Motion: Full ROM Neck Circumference: Normal Teeth Condition: Normal Dentition ASA Classification ASA Score: ASA 2 Emergency Case?: No NPO Status NPO Status: NPO Clears >2 hours, Solids >8 hours Anesthesia Plan Resuscitation Status: Full Code Anesthesia Technique: General Anesthesia Airway Planned: Natural Airway Monitors Used: Standard Monitors
[2025-02-14 07:35] VITALS: BMI 28.4
--- NOTE | 2025-02-14 07:53 | BOWEL_PTH ---
PATIENT: James Swan LOC: [facility] U#:[id number] AGE/SX: 54/M ROOM: RE02/14/[address]: Vasquez Laird : 1970 BED: DIS: 02/14/2025 SPEC #: [id number] RECD: 02/14/25 12:28 STATUS: YOUNG Anatoliy #: [id number] MICHAEL: 02/14/25 07:[address]: Vasquez Laird DEPT: Surgical Specimen RECD BY: Julieta Lord ENTERED: 02/14/25 12:31 SP TYPE: Bowel OTHR DR: Hafsa Lo, VAMSI Tissues: 1 - BIOPSY BOWEL 2 - BIOPSY BOWEL 3 - BIOPSY BOWEL 4 - BIOPSY BOWEL Procedures: GROSS AND MICRO LEVEL 4 Comments: [id number]
[2025-02-14 08:07] VITALS: BP 121/81; PULSE 84; RESP 18; TEMP 36.7; O2SAT 94
--- NOTE | 2025-02-14 08:12 | W.COLOREPORT ---
Date of service: 02/14/25 Time of Service: 08:12 Colonoscopy Report Procedure Description: PROCEDURES PERFORMED: 1. Colonoscopy with hot snare polypectomy Cold forceps polypectomy2. PREOPERATIVE DIAGNOSIS: Screening colonoscopy POSTOPERATIVE DIAGNOSIS: Colon polyps, grade 1 internal hemorrhoids SURGEON: Hair Laird MD INDICATION FOR PROCEDURE: the patient is a 54-year-old man due for his for screening colonoscopy. No symptoms. No family history of colon cancer. FINDINGS: In the proximal transverse colon a 3-5 mm sessile polyp was removed with hot snare technique. In the distal transverse colon the pedunculated 10-12 mm polyp was removed with hot snare technique. In the rectum a couple of different scattered 2-3 mm hyperplastic?appearing polyps removed with cold forceps technique. An isolated flat, 3-5 mm polyp was removed with hot snare technique. There was no obvious diverticular disease anywhere in the colon. There is no inflammation anywhere. He does have grade 1 internal hemorrhoids. SURVEILLANCE interval/FOLLOW-UP: 3 years SPECIMENS: Yes EBL: Minimal COMPLICATIONS: None QUALITY of prep: Excellent Procedure in detail: The patient gave written consent and was in agreement with the indications, the potential risks as well as the benefits of the procedure. They were taken to the endoscopy suite and laid in the left lateral decubitus position. A timeout was performed and anesthesia was administered which was tolerated well. I started the procedure. Digital rectal and visual examination was performed and grossly within normal limits. A well-lubricated flexible colonoscope was then introduced and passed without any notable difficulty all the way to the cecum identified by the ileocecal valve and the appendiceal orifice. The scope was then slowly withdrawn with the above-noted findings. The patient tolerated the procedure well and was taken to the PACU in hemodynamically stable condition.
--- NOTE | 2025-02-14 08:14 | W.PM.DSUDISC ---
Date of service: 02/14/25 Discharge Plan Disposition Patient Disposition: Home Condition: Good Discharge Details Attending Provider: Vasquez Laird Primary Care Provider: Hafsa Lo Home Meds and New Rx's Prescriptions: No Action albuterol sulfate 90 mcg/actuation HFA aerosol inhaler 2 puff inhalation QID PRN (Reason: shortness of breath or wheezing) Qty: 8.5 1RF bisacodyl [Dulcolax (bisacodyl)] 5 mg tablet,delayed release (DR/EC) 5 mg PO ONCE Qty: 4 0RF Rx Instructions: Take per colonoscopy instructions provided by ordering providers office polyethylene glycol 3350 17 gram/dose powder 17 g PO ONCE Qty: 238 0RF Rx Instructions: Take per colonoscopy instructions provided by ordering providers office tamsulosin [Flomax] 0.4 mg capsule 0.4 mg PO DAILY Qty: 90 2RF Discharge Instructions Additional Instructions: FINDINGS: Some polyps were found and removed from your colon today. Nothing to worry about. This is why we do the procedure - this is the prevention part of it. Because of the size of the polyps that were removed, the standard recommendation is that you should repeat a colonoscopy in 3 years. Stand Alone Forms: Anesthesia Discharge InstLolly, Shaun Cutler (DSRosalina) Activity:: Activity as Tolerated Diet:: As Tolerated
[2025-02-14 08:32] VITALS: BP 117/79; PULSE 77; RESP 18; TEMP 36.8; O2SAT 97
--- NOTE | 2025-02-14 08:52 | W.ANESPOSTOP ---
Postoperative Evaluation Date, Time and Location Date Performed: 02/14/25 Time Performed: 08:15 Patient Location: Day Surgery Unit Vital Signs Most Recent Imported Vital Signs: Most Recent Vital Signs Temp Pulse Resp BP Pulse Ox 36.8 C 77 18 117/79 97 02/14/25 08:32 02/14/25 08:32 02/14/25 08:32 02/14/25 08:32 02/14/25 08:32 Pain Score Most Recent Pain Score: Most Recent Pain Score Pain Level 0 02/14/25 08:32 Assessment Mental Status: Awake (Alert & Oriented to Patient Baseline) Airway and Respiratory Function: Patent airway with normal (patient baseline) respiratory exam Cardiovascular Function: Hemodynamically Stable Hydration Status: Adequately Hydrated Nausea & Vomiting: No Nausea or Vomiting Pain: Pt. Denies Any Pain Peripheral Nerve Block: Patient did not receive a nerve block
== END 2025-02-14 08:44 | disposition home or self-care (01) ==
PROVIDERS: PCP Nurse Practitioner Family; Visit Provider Student in an Organized Health Care Education/Training Program
PROC: 0DJD8ZZ Inspection of Lower Intestinal Tract, Via Natural or Artificial Opening Endoscopic (ICD-10-PCS; CPT 45378; principal; 2025-02-14 07:30)
DX: Z12.11 Encounter for screening for malignant neoplasm of colon (principal); D12.3 Benign neoplasm of transverse colon; K64.0 First degree hemorrhoids; K62.1 Rectal polyp
CPT/HCPCS: 45385; 45380; 88305; J2003; J2704

== ENCOUNTER 2025-06-05 12:10 | Outpatient (CLI) | payer BC, SELFPAY ==
--- NOTE | 2025-06-05 12:00 | RT.EKG_ITS ---
APPROVED REPORT Exam: Resting ECG Reason for Exam: pre-op Patient Location: O HR:74 bpm ECG Measurements Heart Rate 74 AXIS MO 190 P 78 QRSd 96 QRS 75 QT 380 T 67 QTc 422 Conclusion Sinus rhythm...normal P axis, V-rate 50- 99 Normal Electrocardiogram
== END 2025-06-05 12:11 | disposition home or self-care (01) ==
LOC: DI.CM 12:10
PROVIDERS: PCP Nurse Practitioner Family; Visit Provider Nurse Practitioner Family
DX: Z01.818 Encounter for other preprocedural examination (principal)
CPT/HCPCS: 93010

== ENCOUNTER 2025-06-09 09:05 | Outpatient (CLI) | payer OTHER, SELFPAY ==
[2025-06-09 09:39] LABS: HCT 48.6 % (40.0-50.0); HGB 16.3 g/dL (13.5-17.5); MCH 30.8 pg (27.0-33.0); MCHC 33.5 % (32.0-36.0); MCV 92 fL (80-95); MPV 9.7 fL (8.0-11.0); Platelet Count 304 10^3/uL (130-400); RBC 5.29 10^6/uL (4.36-5.78); RDW 13.1 % (11.8-14.1); RDW-SD 44.3 fL; WBC 8.05 10^3/uL (4.4-10.8)
[2025-06-09 10:09] LABS: Anion Gap 4.5 mmol/L (3-11); BUN 8 mg/dL (7-18); CO2 31.5 mmol/L (21.0-32.0); Calcium 9.2 mg/dL (8.5-10.1); Chloride 102 mmol/L (98-107); Estimated GFR 105.82 (mL/min/1.73m2); Glucose 108 mg/dL (74-106); Potassium 4.2 mmol/L (3.5-5.1); Sodium 138 mmol/L (136-145)
== END 2025-06-09 09:06 | disposition home or self-care (01) ==
LOC: LBO 09:06 → LBN 09:35
PROVIDERS: PCP Nurse Practitioner Family; Visit Provider Student in an Organized Health Care Education/Training Program
DX: M16.0 Bilateral primary osteoarthritis of hip (principal); Z01.818 Encounter for other preprocedural examination
CPT/HCPCS: 80048; 85027

== ENCOUNTER 2025-06-09 10:04 | Outpatient (CLI) | payer OTHER, SELFPAY ==
--- NOTE | 2025-06-09 08:30 | DI.RAD_ITS ---
Exam(s) XR PELVIS AP EXAM: XR PELVIS AP CLINICAL HISTORY: BILAT HIP OA. TECHNIQUE: 2D digital imaging was performed. COMPARISON: CR XR HIP RT COMPLETE AP PELVIS from 11/13/2024 FINDINGS: AP standing view of the pelvis-hips. There is only minimal hip joint space narrowing superiorly but there are more prominent degenerative changes inferiorly in the joint spaces and femoral head osteophytes. Similar appearance to 11/13/2024. IMPRESSION: Bilateral hip osteoarthritis, similar to 11/13/2024 DATA REPOSITORY: RADIATION DOSE DELIVERED:
== END 2025-06-09 10:05 | disposition home or self-care (01) ==
LOC: DIORS 10:04
PROVIDERS: PCP Nurse Practitioner Family; Visit Provider Physician Assistant
DX: M16.0 Bilateral primary osteoarthritis of hip (principal)
CPT/HCPCS: 72170

== ENCOUNTER 2025-06-25 06:02 | Day surgery (SDC) | payer BC, SELFPAY ==
[2025-06-25] VITALS (20 sets, daily range): BP systolic 108–132; BP diastolic 59–80; PULSE 63–96; RESP 17–28; TEMP 36.1–36.7; O2SAT 92–97; BMI 29.6
[2025-06-25] MEDS: Lactated Ringers 1,000 ML 80 ML IV (06:44)
[2025-06-25] MEDS: Acetaminophen 500 MG TAB 1000 MG PO (06:44)
[2025-06-25] MEDS: Celecoxib 200 MG CAP 400 MG PO (06:44)
--- NOTE | 2025-06-25 06:54 | ANES.PREOP_ITS ---
General Info Date of Service Date Performed: 06/25/25 Height: 6 ft Weight: 99.1 kg Body Mass Index (BMI): 29.6 Surgical Procedure: Operation Date: 06/25/25 08:00 Proposed Procedure Side Surgeon p Hip Total Hip Anterior Bilateral, ACTIS Bilateral Christiano Ceballos MD Meds Allergies and Home Medications Allergies Allergy/AdvReac Type Severity Reaction Status Date / Time No Known Allergies Allergy Verified 06/25/25 06:20 Home Medication ?Medication ?Instructions ?Recorded albuterol sulfate 90 mcg/actuation 2 puff inhalation Q ID PRN 06/05/25 aerosol inhaler shortness of breath or wheez ing #8.5 grams Current Visit Medications: Current Medications Generic Name Dose Route Start Last Admin Trade Name Freq PRN Reason Stop Dose Admin Acetaminophen 1,000 mg 06/25/25 06:00 06/25/25 06:44 Acetaminophen 500 Mg Tab PO 06/25/25 23:59 1,000 mg PREOP LIYA Administration Celecoxib 400 mg 06/25/25 06:00 06/25/25 06:44 Celecoxib 200 Mg Cap PO 06/25/25 23:59 400 mg PREOP LIYA Administration Ringer's Solution 1,000 mls @ 80 mls/hr 06/25/25 06:00 06/25/25 06:44 IV 06/25/25 23:59 80 mls/hr INFUSION LIYA Administration Cefazolin Sodium/Dextrose 2 gm in 50 mls @ 100 mls/hr 06/25/25 06:00 Ancef Duplex IVPB 06/25/25 23:59 PREOP LIYA Tranexamic Acid/Sodium Chloride 1,000 mg in 100 mls @ 600 mls/hr 06/25/25 06:00 IVPB 06/25/25 23:59 PREOP LIYA Tranexamic Acid/Sodium Chloride 1,000 mg in 100 mls @ 600 mls/hr 06/25/25 06:00 IVPB 06/25/25 23:59 DIRECTED LIYA IV Miscellaneous Supplies 1 each 06/25/25 06:00 Iv Access IV 06/25/25 23:59 DIRECTED LIYA Sodium Chloride 0 ml 06/25/25 06:00 Normal Saline Flush 10 Ml Syr IV 06/25/25 23:59 PRN PRN Sodium Chloride 0 ml 06/25/25 06:00 Normal Saline 10 Ml Vial IJ 06/25/25 23:59 DIRECTED PRN Sterile Water 0 ml 06/25/25 06:00 Water,Injection,Sterile 10 Ml Vial IJ 06/25/25 23:59 DIRECTED PRN PFSH Active Problems Active Problems: Problem Status Onset Code Finger pain, left Acute M79.645 Bilateral primary osteoarthritis of hip Chronic M16.0 Labral tear of hip joint Acute S73.199A Lower urinary tract symptoms (LUTS) Chronic R39.9 Elevated PSA Chronic R97.20 Retinal dystrophy Chronic ~10/2021 H35.50 Hyperlipidemia Chronic E78.5 Prediabetes Chronic R73.03 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 Cigarette smoker Chronic F17.210 Medical History Medical History Tubular adenoma of colon On 2024 colonoscopy Migraine headache without aura Asthma In childhood ADD (attention deficit disorder) Surgical History Surgical History History of colonoscopy (02/14/25) S/P right rotator cuff repair (04/13/20) S/P lumbar discectomy H/O right inguinal hernia repair H/O cervical discectomy C4-C7 Anterior Cervical Discectomy with fusion and plating related to cervical stenosis with myelopathy (2013 @ [facility] [place]) Tobacco Smoking/Tobacco Use Status: Current-Occasional Tobacco Type: cigarettes Smoking packs per day: 1.5 Smoking cigarettes per day: 30.0 Years smoked: 41 Smoking pack-years: 61.50 Passive smoking exposure: Yes Second hand exposure: Yes Alcohol Alcohol Intake: current Alcohol intake frequency: holidays/special occasions only Alcohol type: beer and hard liquor Details: 6 pack on weekends (5-6 drinks on typical day, 6 or more monthly or less) Substance Use Substance use: Occasionally Substance use type: marijuana Vital Signs and Lab Results Vital Signs Most Recent Vital Signs in EMR: Most Recent Vital Signs Temp Pulse Resp BP Pulse Ox 36.7 C 68 18 132/79 96 06/25/25 06:05 06/25/25 06:05 06/25/25 06:05 06/25/25 06:05 06/25/25 06:05 Lab Results Complete Blood Count: WBC, (4.4-10.8) 8.05 10^3/uL 06/09/25, 09:15 RBC, (4.36-5.78) 5.29 10^6/uL 06/09/25, 09:15 Hgb, (13.5-17.5) 16.3 g/dL 06/09/25, 09:15 Hct, (40.0-50.0) 48.6 % 06/09/25, 09:15 Plt Count, (130-400) 304 10^3/uL 06/09/25, 09:15 Complete Metabolic Panel: Sodium, (136-145) 138 mmol/L 06/09/25, 09:15 Potassium, (3.5-5.1) 4.2 mmol/L 06/09/25, 09:15 Chloride, (98-107) 102 mmol/L 06/09/25, 09:15 Carbon Dioxide, (21.0-32.0) 31.5 mmol/L 06/09/25, 09 :15 BUN, (7-18) 8 mg/dL 06/09/25, 09:15 Creatinine, (0.70-1.30) 0.8 mg/dL 06/09/25, 09:15 Est GFR (CKD-EPI 2020), (mL/min/1.73m2) 105.82 06/09/25, 09:15 Calcium, (8.5-10.1) 9.2 mg/dL 06/09/25, 09:15 Glucose, (74-106) 108 mg/dL H 06/09/25, 09:15 Anesthesia Assessment and Plan Anesthesia History Personal History: No History of Anesthesia Complications Family History: No Family History of Anesthesia Complications Exercise Tolerance Exercise Tolerance: Metabolic Equivalents>4 Pertinent Negatives Pertinent Negatives: No Symptoms of GERD, No Major Cardiovascular Symptoms or Complaints, No Major Pulmonary Symptoms or Complaints and No History of CVA/TIA Cardiac & Pulmonary Exam Cardiac Exam: Normal S1/S2 Heart Sounds Pulmonary Exam: Clear Bilateral Breath Sounds Cardiac and Pulmonary Comment:: Diminished lungs bilateral. Smoked cigarette this morning Implantable Cardiac Device Does patient have a Pacemaker or an ICD?: No Airway Exam Known Difficult Airway: No Mallampati Class: 2 Mouth Opening: Normal (> 3cm) Thyromental Distance: Greater than 3 cm Neck Range of Motion: Limited ROM Neck Circumference: Normal Teeth Condition: Generalized Poor Dentition ASA Classification ASA Score: ASA 2 Emergency Case?: No NPO Status NPO Status: NPO Clears >2 hours, Solids >8 hours Anesthesia Plan Resuscitation Status: Full Code Anesthesia Technique: Spinal Anesthesia Airway Planned: Natural Airway Monitors Used: Standard Monitors and SedLine
--- NOTE | 2025-06-25 07:12 | W.PM.DSUDISC ---
Date of service: 06/25/25 Discharge Plan Disposition Patient Disposition: Home Condition: Good Discharge Details Reason For Visit: B/L THR Attending Provider: Christiano Ceballos Primary Care Provider: Hafsa Lo Home Meds and New Rx's Prescriptions: New acetaminophen 500 mg tablet 1,000 mg PO TID Qty: 90 3RF aspirin 81 mg tablet,delayed release (DR/EC) 81 mg PO BID Qty: 60 0RF celecoxib 200 mg capsule 200 mg PO BID Qty: 60 0RF dexamethasone 4 mg tablet 4 mg PO DAILY Qty: 2 0RF docusate sodium 100 mg capsule 100 mg PO BID PRNQty: 28 0RF pantoprazole 40 mg tablet,delayed release (DR/EC) 40 mg PO DAILY Qty: 14 0RF oxycodone 5 mg tablet 5 mg PO Q4H MDD 6 tabs PRN (Reason: pain) Qty: 12 0RF Continued albuterol sulfate 90 mcg/actuation HFA aerosol inhaler 2 puff inhalation QID PRN (Reason: shortness of breath or wheezing) Qty: 8.5 3RF Discharge Instructions Additional Instructions: Total Hip Discharge Instructions Activity: The most important activity is to walk. You should try to take short walks a few times a day. You have no restrictions on movement or positioning, but do not try to force what you do. You will find some stiffness and weakness with hip flexion (lifting your knee). Do not try to strengthen this too early, continue to practice walking and stairs and this will come. - Outpatient physical therapy can be helpful to help return you to a normal gait and improve your flexibility and strength. This can start around 2 weeks. For some patients, it?s not necessary. Usually this is determined at the time of discharge or at the first post-operative visit. - You should wear the DENIS hose on both legs for 2 weeks. Dressing: Keep the surgical dressing in place for at least one week. After the first week it may be removed and replace with light gauze and tape or nothing. It may get wet after 3 days but avoid soaking the dressing. If it gets wet, just lightly pat dry. It is important to always keep some gauze between skin folds, especially when you are sitting. Spend some time with the wound exposed when you are lying flat as the incision does wrinkle onto itself. Medications: - You should take Tylenol and an anti-inflammatory Celebrex as your primary pain control medications. If the Celebrex is too expensive or not covered, please call the office for another alternative (Advil/Ibuprofen or Naproxen/Aleve). - You have been prescribed a stronger pain medication Oxycodone for breakthrough pain, take as needed as prescribed. - You have also been prescribed a stomach acid reduction agent Pantoprozole to help reduce stomach acid and reflux. - You have also been prescribed Decadron to help with post-operative nausea and pain. You will take this for two days starting tomorrow. - You will be taking Aspirin 81mg twice a day for DVT prevention unless instructed otherwise. - If you have constipation you should take Colace or Miralax (both [id number]). It takes most people 3-4 days to have a bowel movement. Follow-up: 2 weeks If you have any acute concerns or questions, please do not hesitate to contact the office at [phone]. You may contact Dr. Ceballos with any questions after hours through the hospital at [phone] or on his cell phone at [phone]. Referrals: Christiano Ceballos MD [ [facility] STAFF PHYSICIAN, Orthopaedic Surgical] Equipment/Supplies: Walker Activity:: Activity as Tolerated Shower/Bathe:: 72 hours Diet:: As Tolerated Discharge Orders Discharge Orders: Discharge Order (Routine); Ordered 06/25/25 Ordered By: Shiv Ventura DS: Diagnosis Discharge Diagnosis (1) Bilateral primary osteoarthritis of hip: Status: Chronic
--- NOTE | 2025-06-25 07:15 | DI.RAD_ITS ---
Exam(s) XR HIP LT IN OR EXAM: XR HIP LT IN OR CLINICAL HISTORY: left hip osteoarhritis TECHNIQUE: 2D and realtime digital imaging was performed. CONTRAST MATERIAL: Refer to procedure report. COMPARISON: CR XR PELVIS AP from 06/09/2025 FINDINGS: Fluoroscopy was provided for Dr. Ceballos during the performance of a left total hip arthroplasty. Please refer to the procedure report for complete details. Ka,r=3.1 mGy IMPRESSION: RADIATION DOSE DELIVERED: 0.0 0.0 0
--- NOTE | 2025-06-25 07:15 | DI.RAD_ITS ---
Exam(s) XR HIP RT IN OR EXAM: XR HIP RT IN OR CLINICAL HISTORY: right hip osteoarthritis TECHNIQUE: 2D and realtime digital imaging was performed. CONTRAST MATERIAL: Refer to procedure report. COMPARISON: CR XR PELVIS AP from 06/09/2025 FINDINGS: Fluoroscopy was provided for Dr. Ceballos during the performance of a right total hip arthroplasty. Please refer to the procedure report for complete details. Ka,r=5.18 mGy IMPRESSION: RADIATION DOSE DELIVERED: 0.0 0.0 0
[2025-06-25] MEDS: ceFAZolin 2 GM/50 ML BAG IVPB (07:43)
[2025-06-25] MEDS: TRANEXAMIC ACID/SOD. CHL. 1,000 MG/100 ML BAG 600 MG IVPB ×2 (07:52→09:02)
[2025-06-25] MEDS: oxyCODONE 5 MG TAB PO (11:14)
--- NOTE | 2025-06-25 11:16 | W.PM.OP ---
Operative Note Operative Note PRE-OP DIAGNOSIS: Bilateral Hip Osteoarthritis POST-OP DIAGNOSIS: same PROCEDURE: Bilateral Anterior Total Hip Arthroplasty with Intraoperative Navigation SURGEON: Christiano Ceballos UNIT REACTOR OPERATOR: Shiv Ventura ANESTHESIA TYPE: Spinal Refer to Anesthesia Record ESTIMATED BLOOD LOSS: 350 PATHOLOGY: none sent COMPLICATIONS: None Patient was transported to: PACU Patient's condition: stable Implants: RIGHT: 1. Depuy Harbinger Acetabular Component, 56mm 2. Depuy Acetabular Liner, [id number] 3. Depuy Actis High Offset Collared Femoral Stem, Size 6 4. Depuy Altrx Ceramic Femoral Head, Size 36+1.5mm LEFT: 1. Depuy Harbinger Acetabular Component, 56mm 2. Depuy Acetabular Liner, [id number] 3. Depuy Actis High Offset Collared Femoral Stem, Size 6 4. Depuy Altrx Ceramic Femoral Head, Size 36+5mm Indications: I have seen Maynor in clinic for symptoms of hip arthritis, confirmed with radiographic findings. He has exhausted nonoperative methods and was having significant limitations in daily function and desired better function and less pain. I discussed the technical details of a hip replacement. I explained the risks of the procedure to include, but not limited to, bleeding, infection, pain, stiffness, fracture, damage to nerves and vessels, damage to muscles and tendons, loosening, instability, leg length inequality, need for repeat procedure, blood clot and cardiopulmonary demise. Despite these risks, Maynor elected to proceed. Findings: There was significant signs of arthritis throughout both hips. Large osteophytes were throughout the right femoral neck. The left hip had a large cyst, paralabral, and adjacent to the rectus femoris insertion. Procedure Description: Maynor was greeted in the preoperative holding area where the correct side was identified and marked. The consent was reviewed with the patient and signed. The history and physical was updated. All questions were answered. He was taken back to the operating room. A spinal anesthestic was then administered. The patient was placed into the supine position on the HANA table. Both feet were wrapped with [place]brill cotton wrap along with Coban. RIGHT Side The feet were placed in specialized boots for the HANA table, well seated within the boot and secured. SCDs were applied. The patient was then slid down onto a peroneal post. A preoperative AP hip was obtained to serve as a reference for determining leg lengths. Prophylactic antibiotics in the form of Cefazolin were administered. 1g of Tranxemic Acid was given intravenously within 30 minutes of incision. The right leg was then prepped with Chloraprep and draped in a standard fashion. A second prep with Chloraprep was performed prior to placement of a shower-curtain type drape with Iodine impregnated skin protection. A timeout to confirm correct identity, side and site, procedure, allergies, anesthesia, and medical concerns was performed. An obliquely oriented incision was made starting lateral to the ASIS and running distal over the Tensor Fascia Jessica (TFL) muscle belly toward the fibular head, approximately 10cm. The skin and soft tissue was dissected sharply, through Kashmir?s fascia, and to the fascia of the TFL. With the fascia and superior border of the IT band identified, the fascia was incised with a new knife just above any perforators from the IT band. The TFL muscle belly was bluntly dissected away from the fascia and moved laterally. The fat between TFL and rectus was identified to ensure the dissection was not within the TFL. Blunt dissection created space between abductors and the capsule and retractor was placed over the lateral femoral neck. The fibers of the rectus femoris tendon were identified and these were freed from the anterior capsule. A second cobra retractor was placed around the medial femoral neck. The TFL was further retracted laterally to show the deep fascia. Careful dissection through this layer identified three main crossing vessels of the lateral femoral circumflex. These were cauterized in multiple locations and then cut without any noticeable bleeding. The TFL was further released bluntly from the deep fascia to expose anterior hip capsule and fat The Cale orthopaedic retractor was then placed beneath the TFL and against sartorius and medial soft tissues to protect and retract the soft tissues. A T-capsulotomy was then performed starting at the superior lateral acetabulum and moving distally to the intertrochanteric ridge. These capsular flaps were tagged with a No. 1 Ethibond and elevated from within. The capsular flaps were released to the shoulder of the lateral neck and to the lesser trochanter to give excellent visualization of the proximal femur. A neck osteotomy was performed using an oscillating saw based on preoperative templates. This cut started in the shoulder and of the lateral neck and exited medially. The saw was at all times directed medially to avoid injury to the greater trochanter. Gentle traction was applied to the leg and the osteotomy opened. The femoral head was removed with a corkscrew, making sure to protect the TFL on its exit. This was measured on the back table to determing the starting reamer size. Portions of the rectus obscuring visualization were minimally elevated off the superior acetabulum. An anterior retractor was placed over the anterior wall between capsule and labrum and attached to the Gripper retraction system. A posterior retractor was placed similarly. This provided excellent visualization. The contents of the cotyloid fossa were removed with electrocautery and the labrum was removed with a knife. There was a notable floor osteophyte. There was significant chondromalacia of the superior acetabulum. Acetabular reaming began with a 52mm reamer. This first reaming was directed anterior to posterior and medial to get down to the true floor. This was inspected and reamed until the true floor was reached. The anterior retractor was then released and entry and exit was provided by traction on the capsular flaps. I then reamed sequentially up to a 56mm reamer where good fit was obtained. The larger reamers were oriented based on anatomical reference of the anterior and lateral gramajo to ensure proper abduction and anteversion. Positioning and size was confirmed with the fluoroscopy. A 56mm Depuy Harbinger acetabular component was selected. The acetabulum was reamed around the periphery with the selected acetabular size to prevent a rim fit. The deep tissues were irrigated. The acetabular component was then impacted in a position of about 40-45 degrees of abduction and 15-20 degrees of anteversion, using the patient?s anatomy as the ultimate landmark. Fluoroscopy was used to confirm this. There was excellent cellular plastics cutter of the acetabular component and the inserting handle was removed. The acetabular liner, Depuy [id number] polyethylene liner, was inserted and lined up with the tines of the acetabular component. There was no soft tissue interposition. The liner was then impacted into position and confirmed to be well-seated. A portion of the imelda-articular cocktail was then injected around the acetabulum into the capsule and periosteum. This cocktail consisted of 123mg of Ropivacaine, 0.25mg of Epinephrine, 0.04mg of Clonidine, and 15mg of Ketorolac, diluted to 50cc. Traction was released from the femur. The leg was rotated to 120 degrees. Any remaining medial capsule was released until the lesser trochanter was easily palpable. A Carmona retractor was placed medially. The lateral capsule was further released into the shoulder to allow access to the greater trochanter. A Carmona retractor was placed over the greater trochanter which allowed the trochanter to flip in front of the capsule for excellent exposure. The leg was brought down into maximal extension and 20 degrees of adduction while ensuring there was no impingement on the acetabulum. Any remnant capsule within the trochanter was released. Piriformis and obturator externis were identified and protected. There was excellent access to the proximal femur. The lateral neck remnant was removed with a rongeur. A blunt canal probe was used to identify the canal and trajectory for later broaching. A box osteotome initiated the broach course. A small curved rasp and a curved curette were used to work laterally. Broaching then began with a size 8 Corail broach. This was inserted manually around the trochanter and into the canal before mallet blows. The broach was seated a few millimeters below the cut level based on the neck cut and the preoperative template. Sequential broaching was continued with the Apicase pneumatic broaching device until a tight fit was obtained with good rotational control of the femur. A trial standard offset neck was inserted along with a +1.5mm trial head. The leg was brought out of extension and adduction and then reduced with traction and internal rotation. The leg was stable anteriorly in a position of 30 degrees of extension and 90 degrees of external rotation. Fluoroscopy was used to ensure there was no fracture and the stem was seated well. Leg lengths were checked with an AP pelvis and pelvic reference points. [employer] navigation system was used to confirm appropriate positioning and leg length and offset. This unfortunately did not fully correct the offset but did correct the leg length. Therefore, I went to a high offset neck. Once content with the desired offset and leg lengths, the leg was brought back into extension, external rotation and adduction. The periosteum and surrounding tissue was injected with remaining portion of the imelda-articular cocktail. The proximal femur was irrigated as well as the deep tissues. The Depuy Actis high offset collared stem, size 6, was then manually inserted into the proximal femur making sure to control rotation. It was then malleted into position with light blows, giving breaks to allow bone expansion and decrease risk of fracture. The selected Depuy Altrx Ceramic Head, size 36+1.5mm, was then placed onto the clean and dry trunnion and secured with impaction onto the tapered fit. The leg was brought back out of extension and adduction and reduced with traction and internal rotation. Stability was confirmed with no shuck at 90 degrees of external rotation and 30 degrees of extension. No impingement through range of motion arc. Final x-ray images were obtained with fluoroscopy to confirm adequate positioning and no intraoperative fracture. The deep tissues were thoroughly irrigated with Irrisept chlorhexadine solution. The second dose of TXA 1g was administered intravenously.The capsule was then reapproximated with the previously placed Ethibond sutures. The TFL fascia was finally closed with a No. 2 Stratafix, barbed suture. Deep tissues were then reapproximated with 0 Vicryl and a running 2-0 Vicryl. The skin was closed with a running 4-0 Monocryl in a subcuticular fashion. This was reinforced with skin glue. A Mepilex silver dressing was applied. LEFT Side Keeping the back table sterile, the drapes were removed, light handles changed, and fluoroscopy switched rooms sides. Once again, a AP hip was obtained to serve as a reference for determining leg lengths. The left leg was then prepped with Chloraprep and draped in a standard fashion. A second prep with Chloraprep was performed prior to placement of a shower-curtain type drape with Iodine impregnated skin protection. A timeout was once again performed to ensure that there were no issues to proceed. An obliquely oriented incision was made starting lateral to the ASIS and running distal over the Tensor Fascia Jessica (TFL) muscle belly toward the fibular head, approximately 10cm. The skin and soft tissue was dissected sharply, through Kashmir?s fascia, and to the fascia of the TFL. With the fascia and superior border of the IT band identified, the fascia was incised with a new knife just above any perforators from the IT band. The TFL muscle belly was bluntly dissected away from the fascia and moved laterally. The fat between TFL and rectus was identified to ensure the dissection was not within the TFL. Blunt dissection created space between abductors and the capsule and retractor was placed over the lateral femoral neck. The fibers of the rectus femoris tendon were identified and these were freed from the anterior capsule. A second cobra retractor was placed around the medial femoral neck. The TFL was further retracted laterally to show the deep fascia. Careful dissection through this layer identified three main crossing vessels of the lateral femoral circumflex. These were cauterized in multiple locations and then cut without any noticeable bleeding. The TFL was further released bluntly from the deep fascia to expose anterior hip capsule and fat The Cale orthopaedic retractor was then placed beneath the TFL and against sartorius and medial soft tissues to protect and retract the soft tissues. A T-capsulotomy was then performed starting at the superior lateral acetabulum and moving distally to the intertrochanteric ridge. These capsular flaps were tagged with a No. 1 Ethibond and elevated from within. The capsular flaps were released to the shoulder of the lateral neck and to the lesser trochanter to give excellent visualization of the proximal femur. A neck osteotomy was performed using an oscillating saw based on preoperative templates. This cut started in the shoulder and of the lateral neck and exited medially. The saw was at all times directed medially to avoid injury to the greater trochanter. Gentle traction was applied to the leg and the osteotomy opened. The femoral head was removed with a corkscrew, making sure to protect the TFL on its exit. This was measured on the back table to determing the starting reamer size. Portions of the rectus obscuring visualization were minimally elevated off the superior acetabulum. An anterior retractor was placed over the anterior wall between capsule and labrum and attached to the Gripper retraction system. A posterior retractor was placed similarly. This provided excellent visualization. The contents of the cotyloid fossa were removed with electrocautery and the labrum was removed with a knife. There was a notable floor osteophyte. There was significant chondromalacia of the superior acetabulum. Acetabular reaming began with a 52mm reamer. This first reaming was directed anterior to posterior and medial to get down to the true floor. This was inspected and reamed until the true floor was reached. The anterior retractor was then released and entry and exit was provided by traction on the capsular flaps. I then reamed sequentially up to a 56mm reamer where good fit was obtained. The larger reamers were oriented based on anatomical reference of the anterior and lateral gramajo to ensure proper abduction and anteversion. Positioning and size was confirmed with the fluoroscopy. A 56mm Depuy Harbinger acetabular component was selected. The acetabulum was reamed around the periphery with the selected acetabular size to prevent a rim fit. The deep tissues were irrigated. The acetabular component was then impacted in a position of about 40-45 degrees of abduction and 15-20 degrees of anteversion, using the patient?s anatomy as the ultimate landmark. Fluoroscopy was used to confirm this. There was excellent cellular plastics cutter of the acetabular component and the inserting handle was removed. The acetabular liner, Depuy [id number] polyethylene liner, was inserted and lined up with the tines of the acetabular component. There was no soft tissue interposition. The liner was then impacted into position and confirmed to be well-seated. A portion of the imelda-articular cocktail was then injected around the acetabulum into the capsule and periosteum. This cocktail consisted of 123mg of Ropivacaine, 0.25mg of Epinephrine, 0.04mg of Clonidine, and 15mg of Ketorolac, diluted to 50cc. Traction was released from the femur. The leg was rotated to 120 degrees. Any remaining medial capsule was released until the lesser trochanter was easily palpable. A Carmona retractor was placed medially. The lateral capsule was further released into the shoulder to allow access to the greater trochanter. A Carmona retractor was placed over the greater trochanter which allowed the trochanter to flip in front of the capsule for excellent exposure. The leg was brought down into maximal extension and 20 degrees of adduction while ensuring there was no impingement on the acetabulum. Any remnant capsule within the trochanter was released. Piriformis and obturator externis were identified and protected. There was excellent access to the proximal femur. The lateral neck remnant was removed with a rongeur. A blunt canal probe was used to identify the canal and trajectory for later broaching. A box osteotome initiated the broach course. A small curved rasp and a curved curette were used to work laterally. Broaching then began with a size 8 Corail broach. This was inserted manually around the trochanter and into the canal before mallet blows. The broach was seated to a few millimeters below the cut level based on the neck cut and the preoperative template. Sequential broaching was continued with the Apicase pneumatic broaching device until a tight fit was obtained with good rotational control of the femur. A trial high offset neck was inserted along with a +5mm trial head. The leg was brought out of extension and adduction and then reduced with traction and internal rotation. The leg was stable anteriorly in a position of 30 degrees of extension and 90 degrees of external rotation. Fluoroscopy was used to ensure there was no fracture and the stem was seated well. Leg lengths were checked with an AP pelvis and pelvic reference points. [employer] navigation system was used to confirm appropriate positioning and leg length and offset. Once content with the desired offset and leg lengths, the leg was brought back into extension, external rotation and adduction. The periosteum and surrounding tissue was injected with remaining portion of the imelda-articular cocktail. The proximal femur was irrigated as well as the deep tissues. The Depuy Actis high offset collared stem, size 6, was then manually inserted into the proximal femur making sure to control rotation. It was then malleted into position with light blows, giving breaks to allow bone expansion and decrease risk of fracture. The selected Depuy Altrx Ceramic Head, size 36+5mm, was then placed onto the clean and dry trunnion and secured with impaction onto the tapered fit. The leg was brought back out of extension and adduction and reduced with traction and internal rotation. Stability was confirmed with no shuck at 90 degrees of external rotation and 30 degrees of extension. No impingement through range of motion arc. Final x-ray images were obtained with fluoroscopy to confirm adequate positioning and no intraoperative fracture. The deep tissues were thoroughly irrigated with Irrisept chlorhexadine solution. The capsule was then reapproximated with the previously placed Ethibond sutures. The TFL fascia was finally closed with a No. 2 Stratafix, barbed suture. Deep tissues were then reapproximated with 0 Vicryl and a running 2-0 Vicryl. The skin was closed with a running 4-0 Monocryl in a subcuticular fashion. This was reinforced with skin glue. A Mepilex silver dressing was applied. At the end of the case, all counts were correct. Maynor was transferred to the hospital bed without difficulty and suffering no apparent complication. Maynor has a good prognosis. Physical therapy will start today and without restrictions, weight-bearing as tolerated. Aspirin 81mg BID will be used for DVT prophylaxis. Date of Procedure: 06/25/25
--- NOTE | 2025-06-25 11:56 | W.ANESPOSTOP ---
Postoperative Evaluation Date, Time and Location Date Performed: 06/25/25 Time Performed: 11:56 Patient Location: PACU Vital Signs Most Recent Imported Vital Signs: Most Recent Vital Signs Temp Pulse Resp BP Pulse Ox 36.1 C L 63 18 108/76 93 06/25/25 11:28 06/25/25 11:28 06/25/25 11:28 06/25/25 11:28 06/25/25 11:28 Pain Score Most Recent Pain Score: Most Recent Pain Score Pain Level 3 06/25/25 11:28 Assessment Mental Status: Awake (Alert & Oriented to Patient Baseline) Airway and Respiratory Function: Patent airway with normal (patient baseline) respiratory exam Cardiovascular Function: Hemodynamically Stable Hydration Status: Adequately Hydrated Nausea & Vomiting: No Nausea or Vomiting Pain: Pain is tolerable per patient Peripheral Nerve Block: Patient did not receive a nerve block
--- NOTE | 2025-06-25 12:35 | IN_ITS ---
PT Notes Visit Reasons: B/L THR Physical Therapy Day Surgery Initial Evaluation Date: 06/25/2025 Referring Doctor: ANDRY Ross, Dr. Ceballos PT Orders: PT CONSULT: Status post Ortho surgery Precautions: WBAT BLE, TEDS x 2 weeks Patient Profile/Admitting Diagnosis: Patient is 55-year-old male presenting status post elective bilateral MIKAELA under spinal anesthesia by Dr. Ceballos on 06/25/2025. Postop uncomplicated. PMHX: Bilateral primary osteoarthritis of hip (Chronic) 40 mg Depo-Medrol intra-articular injections under ultrasound: 03/24/25Labral tear of hip joint (Acute) Lower urinary tract symptoms (LUTS) (Chronic) Elevated PSA (Chronic) Retinal dystrophy (Chronic ~10/2021) Suspected retinitis pigmentosa of both eyesHyperlipidemia (Chronic) Prediabetes (Chronic) Degenerative joint disease (DJD) of lumbar spine (Chronic) Cigarette smoker (Chronic) Medical History Tubular adenoma of colon On 2024 colonoscopyMigraine headache without aura Asthma In childhoodADD (attention deficit disorder) Surgical History History of colonoscopy (02/14/25) S/P right rotator cuff repair (04/13/20) S/P lumbar discectomy H/O right inguinal hernia repair H/O cervical discectomy C4-C7 Anterior Cervical Discectomy with fusion and plating related to cervical stenosis with myelopathy (2013 @ [facility] – [place]) Social History/Home Situation:Resides with friend in a single family home with 4 [place] with B rail. Independent with ambulation without device Equipment Owned/DME: issued and fitted for FWW Subjective: Pt reports he has burning / pulling sensation to B incision area. Objective: [] General Observation: male semireclined on stretcher with ice to B hips, friend present in room Mental Status: A+OX4 , cooperative , able to follow multistep instructions, agreeable to participate in assessment Pain: 2/10 B hips ROM: [] BUE WNL BUE: WFL Strength: [] BUE: 5/5 B Lower Extremity: Hip 3/5, knee 3+/5, ankle 3+/5 Sensation: intact, parasthesia to right foot diminished /resolved at end of session Bed Mobility/Transfers: [] Supine to sit SBA Sit to stand SBA Stand to sit SBA Bed to chair SBA with FWW Gait: Amb with FWW SBA 150 feet with decreased step length B , narrow JOHN Balance: [] Static Sitting: Normal Dynamic Sitting: Good Static Standing: Good Dynamic Standing: Good- Special Tests: [] Mobility Limitations Standardized Measure [] [facility] AM-PAC 6 clicks Basic Mobility Inpatient Short Form: [] Raw Score: 23 CMS Score: 11.20% deficit Informed Consent/Education: Patient instructed in purpose of PT consult. Packet containing MIKAELA exercise protocol has been given to patient. Education and training on initial set of exercises that can be done at home have been completed with patient. Treatment: 26250 functional transfers from various surfaces including bed , chair, wheel chair and toilet with SNA and FWW simulated car transfer utilizing technique of lowering seat back rest to allow for foot clearance into car . Friend also instructed in placing FWW at the top of the stairs prior to pt ascending stairs into home. Assessment: Patient is a 55 yo male who presents with clinical signs and symptoms consistent with current/admitting diagnoses that have resulted to mobility limitations, gait instability, generalized weakness, and impairment of motor control as demonstrated by the following impairment level findings: 1. Decreased strength to B hips major muscle groups 2. Impaired standing balance 3. Limitation of joint range of motion in B hips 4. Pain in B hips 5. Impaired standing functional activity tolerance Impairments are contributing to the following functional limitations: 1. Inability to safely ambulate without assistive device 2. Increase completion time for mobility ADL performance 3. Increased fall risk 4. difficulty performing stairs without assistance Patient is assessed as a complexity based on the following: History: 55-year-old male with impairment level findings, functional limitations, and past medical history as indicated above Examination: Demonstrable impairment in strength, balance, and mobility level with underlying impairments and functional limitations as documented above Presentation stable Decision Making: Low Goals: N/A. PT evaluation and 1-2 treatment sessions only for functional mobility training using recommended AD and for HEP instruction. Plan of Care/Treatment Plan: N/A. PT evaluation and 1-2 treatment session only for functional mobility training using recommended AD and for HEP instruction. DISCHARGE RECOMMENDATIONS: home with HEP TREATMENT CODE/TIME:21828,84014/ [id number] Thank you for the opportunity to participate in the care of this patient. Salina Pelaez,PT [facility]
== END 2025-06-25 12:49 | disposition home or self-care (01) ==
PROVIDERS: PCP Nurse Practitioner Family; Visit Provider Student in an Organized Health Care Education/Training Program
PROC: 0SR90JZ Replacement of Right Hip Joint with Synthetic Substitute, Open Approach (ICD-10-PCS; CPT 27130; principal; 2025-06-25 07:30)
DX: M16.0 Bilateral primary osteoarthritis of hip (principal)
CPT/HCPCS: 27130; 20985; 97110; 97161; 73501; C1776; J0665; J0690; J1100; J1596; J1885; J2003; J2371; J2401; J2405; J2704

== ENCOUNTER 2025-07-08 01:33 | Outpatient (CLI) | payer OTHER, SELFPAY ==
[2025-07-09 19:08] LABS: PSA, Diagnostic 13.0 ng/mL (<=3.5)
== END 2025-07-08 01:34 | disposition home or self-care (01) ==
LOC: LBO 01:33
PROVIDERS: PCP Nurse Practitioner Family; Visit Provider Urology
DX: R97.20 Elevated prostate specific antigen [PSA] (principal)
CPT/HCPCS: 36415; 84153

== ENCOUNTER 2025-07-10 13:02 | Outpatient (CLI) | payer OTHER, SELFPAY ==
--- NOTE | 2025-07-10 09:45 | DI.RAD_ITS ---
Exam(s) XR HIP PELVIS ADULT BL EXAM: XR HIP PELVIS ADULT BL CLINICAL HISTORY: S/P BILATERAL MIKAELA. TECHNIQUE: 2D digital imaging was performed. COMPARISON: CR XR PELVIS AP from 06/09/2025 FINDINGS: 3 views There has been interval bilateral hip arthroplasties. Position alignment of the components of the bilateral hip prostheses are satisfactory. No fracture or loosening evident. No radiographic evidence of osteomyelitis. IMPRESSION: Stable satisfactory appearance of the recently placed bilateral hip prostheses. DATA REPOSITORY: RADIATION DOSE DELIVERED:
== END 2025-07-10 13:03 | disposition home or self-care (01) ==
LOC: DIORS 13:02
PROVIDERS: PCP Nurse Practitioner Family; Visit Provider Physician Assistant
DX: Z96.643 Presence of artificial hip joint, bilateral (principal)
CPT/HCPCS: 73521